=== PATIENT | female | born 1930 | race Caucasian/White ===

== ENCOUNTER 2016-12-02 08:03 | Inpatient (IN) | payer OTHER ==
[2016-12-02] MEDS ORDERED: NS 250 ML IV ONE (08:24)
[2016-12-02] MEDS ORDERED: ONDANSETRON 4 MG/2 ML VIAL IVP ONE (08:24)
--- NOTE | 2016-12-02 09:03 | CPEKG ---
Heart Rate: 87 RR Interval: 690 P-R Interval: 160 QRSD Interval: 106 QT Interval: 412 QTC Interval: 496 P [place]: 54 QRS [place]: 22 T Wave [place]: 148 EKG Severity - ABNORMAL ECG - EKG Impression: SINUS RHYTHM EKG Impression: NONSPECIFIC REPOL ABNORMALITY, LATERAL LEADS EKG Impression: BORDERLINE PROLONGED QT INTERVAL Electronically Signed By: Eugenio Carr 02-Dec-2016 15:00:12
[2016-12-02] MEDS ORDERED: IOPAMIDOL (ISOVUE-370) 150 ML BTL IV ONE (09:04)
--- NOTE | 2016-12-02 09:14 | EDPHY ---
H & P Time Seen by Provider: 12/02/16 08:23 HPI/ROS: HPI Nausea. On Macrobid. 78-year-old female by private vehicle. This patient has a recent diagnosis of urinary tract infection. She was started on Macrobid yesterday. She reports that she thinks the medication is making her nauseous. She was up last night with nausea but no vomiting. She denies any abdominal pain. She has not had any diarrhea. No bloody or melenic stool. Last meal was yesterday evening. Last bowel movement yesterday as well. She has not had any chest pain. No palpitations. She does state that she feels mildly more short of breath with exertion. ROS: Constitutional: No fever, no chills. No weakness. Eyes: No discharge. No changes in vision. ENT: No sore throat. No nasal congestion or rhinorrhea. Respiratory: No cough. As above. Cardiac: No chest pain, no palpitations. Gastrointestinal: No abdominal pain, no vomiting, no diarrhea. As above. Genitourinary: No hematuria. No dysuria or increased frequency with urination. Musculoskeletal: No back pain. No neck pain. No myalgias or arthralgias. Skin: No rashes. Neurological: No headache. No focal weakness or altered sensation. Past medical history: Aortic valve regurgitation. She is not on any antiplatelet or anticoagulant medications. Intermittent atrial fibrillation. Her operating room aide is Dr. Carlos Giraldo. Her primary care physician is Dr. Chan. Social history: She lives at [facility] by herself. Her daughter is at the bedside and lives nearby. Physical Exam: General Appearance: Alert, no distress. This patient is responding to questions appropriately and in full sentences. This patient appears well- hydrated and well-nourished. Eyes: Pupils equal and round no pallor or injection. No lid edema, erythema or injection. Respiratory: There are no retractions, lungs are clear to auscultation with good air movement bilaterally. Cardiovascular: Regular rate and rhythm. Holosystolic murmur. Gastrointestinal: Abdomen is soft and nontender, no masses, bowel sounds normal. No focal tenderness at McBurney's point. No Moran sign. Neurological: Motor sensory function is grossly intact. Cranial nerves are normal. Gait is normal. Skin: Warm and dry, no rashes. Musculoskeletal: Neck is supple and nontender. Right lower extremity is chronically swollen relative to the left secondary to a knee injury. Psychiatric: No agitation. No depression. Database: EKG: EKG time is 9:01 a.m.; EKG shows a narrow complex normal sinus rhythm with a ventricular rate of 87. Repolarization abnormality noted in the lateral leads. She has minimal J-point elevation in AVR, she has minimal ST depressions in V4 , V5 and V6 The AR, QRS, QT intervals are within normal limits. There are no ST-T wave changes indicative of ischemic or injury pattern. No evidence of right heart strain. This EKG was compared to a prior study from 05/08/2016 and does not show any significant changes. Interpreted by me. Imaging: Chest x-ray PA and lateral; the cardiac mediastinal silhouette is unremarkable except for mild cardiomegaly and some rotational effect. No evidence of infiltrate or pneumothorax. Chronic diffuse airway disease. No acute cardiopulmonary disease process noted. Interpreted by me. Right lower extremity Doppler ultrasound; negative for DVT. Results were discussed with staff radiologist. CT angiogram of chest; no pulmonary embolism. Mild CHF, pulmonary nodules noted. No other significant pathology. Results discussed with staff radiologist. Recommendation is repeat CT in several months to follow up on pulmonary nodules. Procedures: Emergency department course: IV placed. She was placed on a monitor. EKG performed. Chest x-ray obtained. She was given 4 mg of IV Zofran. Vital signs reviewed and are normal. She is afebrile. 10:40 a.m., patient currently in CT. 11:25 a.m., patient re-evaluated. Resting comfortably at this time. Results of diagnostic tests with the daughter and the patient. The urine appears clean. I do not feel there is indication for antibiotics at this time. The patient is afebrile. Her vital signs are otherwise normal. However, concerning is a low sodium of 121. She does have a history of hyponatremia. However on review of her recent laboratory work she has had sodiums in the 130s. They are in agreement with admission. 11:55 a.m., spoke with hospitalist, case discussed in detail. Patient accepted for admission to the hospitalist service under the care of Dr. Rivera. Differential Diagnosis: The differential diagnosis on this patient includes but is not limited to medication reaction, acute coronary syndrome, pulmonary embolism, atrial fibrillation. This represents a partial list of diagnoses considered. These considerations are based on history, physical exam, past history, reassessment and diagnostic testing. Smoking Status: Former smoker Constitutional: Initial Vital Signs Temperature (C) 36.3 C 12/02/16 08:10 Heart Rate 96 12/02/16 08:10 Respiratory Rate 18 12/02/16 08:10 Blood Pressure 129/78 H 12/02/16 08:10 O2 Sat (%) 93 12/02/16 08:10 O2 Delivery Mode Room Air Allergies/Adverse Reactions: Sulfa (Sulfonamide Antibiotics) Allergy (Verified 12/02/16 08:09) Home Medications: Medication Instructions Recorded ALPRAZolam [Xanax] 0.5 mg PO BID PRN 01/12/11 Aspirin [Aspirin 81mg] 81 mg PO DAILY 01/12/11 Atenolol [Atenolol 25 mg] 25 mg PO DAILY 01/18/11 Macrobid 12/02/16 Medical Decision Making - Data Points Laboratory Results: Laboratory Results 12/02/16 09:12 12/02/16 09:12 12/02/16 12/02/16 12/02/16 11:10 09:12 09:12 WBC RBC Hgb Hct MCV MCH MCHC RDW Plt Count MPV Neut % (Auto) Lymph % (Auto) Mcleod % (Auto) Eos % (Auto) Baso % (Auto) Nucleat RBC Rel Count Absolute Neuts (auto) Absolute Lymphs (auto) Absolute Monos (auto) Absolute Eos (auto) Absolute Basos (auto) Absolute Nucleated RBC Immature Gran % Immature Gran # PT 15.7 SEC H SEC (12.0-15.0) INR 1.25 H (0.83-1.16) APTT 28.5 SEC SEC (23.0-38.0) D-Dimer 0.54 ug/mLFEU H ug/mLFEU (0.00-0.50) Sodium 121 mEq/L L mEq/L (134-144) Potassium 4.4 mEq/L mEq/L (3.5-5.2) Chloride 88 mEq/L L mEq/L (97-110) Carbon Dioxide 22 mEq/l mEq/l (22-31) Anion Gap 11 mEq/L mEq/L (8-16) BUN 12 mg/dL mg/dL (7-23) Creatinine 0.4 mg/dL L mg/dL (0.6-1.0) Estimated GFR > 60 Glucose 130 mg/dL H mg/dL (70-100) Calcium 8.9 mg/dL mg/dL (8.5-10.4) Total Bilirubin 1.8 mg/dL H mg/dL (0.1-1.4) Conjugated Bilirubin 0.4 mg/dL mg/dL (0.0-0.5) Unconjugated Bilirubin 1.4 mg/dL H mg/dL (0.0-1.1) AST 52 IU/L H IU/L (14-46) ALT 70 IU/L H IU/L (9-52) Alkaline Phosphatase 51 IU/L IU/L (38-126) Troponin I NT-Pro-B Natriuret Pep 8230 pg/mL H pg/mL (0-450) Total Protein 6.6 g/dL g/dL (6.3-8.2) Albumin 4.1 g/dL g/dL (3.5-5.0) Lipase 76.0 IU/L IU/L (23-300) Urine Color YELLOW Urine Appearance CLEAR Urine pH 5.0 (5.0-7.5) Ur Specific [place] > 1.035 H (1.002-1.030) Urine Protein NEGATIVE (NEGATIVE) Urine Ketones 1+ H (NEGATIVE) Urine Blood NEGATIVE (NEGATIVE) Urine Nitrate NEGATIVE (NEGATIVE) Urine Bilirubin NEGATIVE (NEGATIVE) Urine Urobilinogen NEGATIVE EU EU (0.2-1.0) Ur Leukocyte Esterase NEGATIVE (NEGATIVE) Urine RBC NONE SEEN /hpf /hpf (0-3) Urine WBC 1-3 /hpf /hpf (0-3) Ur Epithelial Cells TRACE /lpf /lpf (NONE-1+) Urine Mucus TRACE /lpf /lpf (NONE-1+) Ur Culture Indicated? NOT INDICATED (NI) Urine Glucose NEGATIVE (NEGATIVE) 12/02/16 12/02/16 09:12 09:00 WBC 15.13 10^3/uL H 10^3/uL (3.80-9.50) RBC 3.68 10^6/uL L 10^6/uL (4.18-5.33) Hgb 11.7 g/dL L g/dL (12.6-16.3) Hct 32.8 % L % (38.0-47.0) MCV 89.1 fL fL (81.5-99.8) MCH 31.8 pg pg (27.9-34.1) MCHC 35.7 g/dL g/dL (32.4-36.7) RDW 12.6 % % (11.5-15.2) Plt Count 204 10^3/uL 10^3/uL (150-400) MPV 10.4 fL fL (8.7-11.7) Neut % (Auto) 91.3 % H % (39.3-74.2) Lymph % (Auto) 4.3 % L % (15.0-45.0) Mcleod % (Auto) 3.4 % L % (4.5-13.0) Eos % (Auto) 0.1 % L % (0.6-7.6) Baso % (Auto) 0.2 % L % (0.3-1.7) Nucleat RBC Rel Count 0.0 % % (0.0-0.2) Absolute Neuts (auto) 13.81 10^3/uL H 10^3/uL (1.70-6.50) Absolute Lymphs (auto) 0.65 10^3/uL L 10^3/uL (1.00-3.00) Absolute Monos (auto) 0.52 10^3/uL 10^3/uL (0.30-0.80) Absolute Eos (auto) 0.01 10^3/uL L 10^3/uL (0.03-0.40) Absolute Basos (auto) 0.03 10^3/uL 10^3/uL (0.02-0.10) Absolute Nucleated RBC 0.00 10^3/uL 10^3/uL (0-0.01) Immature Gran % 0.7 % % (0.0-1.1) Immature Gran # 0.11 10^3/uL H 10^3/uL (0.00-0.10) PT INR APTT D-Dimer Sodium Potassium Chloride Carbon Dioxide Anion Gap BUN Creatinine Estimated GFR Glucose Calcium Total Bilirubin Conjugated Bilirubin Unconjugated Bilirubin AST ALT Alkaline Phosphatase Troponin I < 0.012 ng/mL ng/mL (0-0.034) NT-Pro-B Natriuret Pep Total Protein Albumin Lipase Urine Color Urine Appearance Urine pH Ur Specific [place] Urine Protein Urine Ketones Urine Blood Urine Nitrate Urine Bilirubin Urine Urobilinogen Ur Leukocyte Esterase Urine RBC Urine WBC Ur Epithelial Cells Urine Mucus Ur Culture Indicated? Urine Glucose Medications Given: Discontinued Medications Sodium Chloride (Ns) 250 mls @ 0 mls/hr IV ONCE ONE PRN Reason: Wide Open Stop: 12/02/16 08:25 Last Admin: 12/02/16 09:20 Dose: 250 mls Ondansetron HCl (Zofran) 4 mg IVP EDNOW ONE Stop: 12/02/16 08:25 Last Admin: 12/02/16 09:20 Dose: 4 mg Departure - Departure Disposition: [facility] Inpatient Acute Clinical Impression: Nausea, Hyponatremia, CHF (congestive heart failure) Referrals: Racquel Chan MD [Primary Care Provider] - As per Instructions
[2016-12-02 09:25] LABS: % IMMATURE GRANULYOCYTES 0.7 % (0.0-1.1); ABSOLUTE IMMATURE GRANULOCYTES 0.11 10^3/uL (0.00-0.10); ADD DIFF? NO; ADD MORPH? NO; ADD SCAN? NO; ATYPICAL LYMPHOCYTE FLAG 0 (0-99); FRAGMENT RBC FLAG 0 (0-99); HEMATOCRIT 32.8 % (38.0-47.0); HEMOGLOBIN 11.7 g/dL (12.6-16.3); LEFT SHIFT FLG 0 (0-99); LIPEMIA HEMOLYSIS FLAG 90 (0-99); MEAN CELL HEMOGLOBIN 31.8 pg (27.9-34.1); MEAN CELL HEMOGLOBIN CONCENTR. 35.7 g/dL (32.4-36.7); MEAN CELL VOLUME 89.1 fL (81.5-99.8); MEAN PLATELET VOLUME 10.4 fL (8.7-11.7); PLATELET CLUMPS FLAG 0 (0-99); PLATELET COUNT 204 10^3/uL (150-400); RED BLOOD CELL COUNT 3.68 10^6/uL (4.18-5.33); RED CELL DISTRIBUTION WIDTH 12.6 % (11.5-15.2)
[2016-12-02 09:34] LABS: ALANINE AMINOTRANSFERASE 70 IU/L (9-52); ALBUMIN 4.1 g/dL (3.5-5.0); ALKALINE PHOSPHATASE 51 IU/L (38-126); ANION GAP 11 mEq/L (8-16); ASPARTATE AMINOTRANSFERASE 52 IU/L (14-46); BILIRUBIN,TOTAL 1.8 mg/dL (0.1-1.4); BILIRUBIN-CONJUGATED 0.4 mg/dL (0.0-0.5); BILIRUBIN-UNCONJUGATED 1.4 mg/dL (0.0-1.1); CALCIUM 8.9 mg/dL (8.5-10.4); CARBON DIOXIDE 22 mEq/l (22-31); CHLORIDE 88 mEq/L (97-110); CREATININE 0.4 mg/dL (0.6-1.0); GLOMERULAR FILTRATION RATE > 60; GLUCOSE 130 mg/dL (70-100); INR 1.25 (0.83-1.16); POTASSIUM 4.4 mEq/L (3.5-5.2); PROTIME(PATIENT) 15.7 SEC (12.0-15.0); SODIUM 121 mEq/L (134-144); TOTAL PROTEIN 6.6 g/dL (6.3-8.2)
[2016-12-02 09:35] LABS: APTT 28.5 SEC (23.0-38.0)
[2016-12-02 11:31] LABS: COLOR YELLOW; LEUKOCYTE ESTERASE,URINE NEGATIVE (NEGATIVE); NITRITE,URINE NEGATIVE (NEGATIVE)
[2016-12-02 11:38] LABS: MUCUS TRACE /lpf (NONE-1+)
[2016-12-02 11:43] LABS: RBC,URINE NONE SEEN /hpf (0-3)
[2016-12-02] MEDS ORDERED: ONDANSETRON 4 MG/2 ML VIAL IVP PRN (15:56)
[2016-12-02] MEDS ORDERED: ZOLPIDEM TARTRATE 5 MG TAB PO PRN (15:56)
[2016-12-02] MEDS ORDERED: ACETAMINOPHEN 325 MG TAB PO PRN (15:56)
[2016-12-02] MEDS ORDERED: ALPRAZolam 0.5 MG TAB PO PRN (16:02)
[2016-12-02] MEDS: FUROSEMIDE 40 MG/4 ML VIAL IVP SCH ×2 (16:34→21:23)
--- NOTE | 2016-12-02 16:41 | PDGENHP ---
History and Physical History and Physical: HISTORY AND PHYSICAL CC: Nausea HISTORY: This patient is acute scenario started 5 days ago when she started noticing urinary frequency. She was seen 2 days ago at primary care clinic where she was diagnosed with urinary tract infection and started on Macrobid. She denies having had any urinary burning, fevers, flank pain. She does give a history of having had urinary tract infections as often as monthly although more recently says she has been taking apple cider vinegar and has had much less trouble with this with her last episode of bladder symptoms being a few months ago. The patient comes into the emergency room today because of nausea which she felt was caused by the Macrobid. This nausea started last evening and she has not had any vomiting but not a lot of trouble eating. Initially she denies any kind of shortness of breath or leg swelling but as we talked further does admit that she is less active than she used to be due to exertional dyspnea which seems probably somewhat chronic as well as chronic swelling she says in her right leg only. She does have a history of mitral regurgitation but has never had congestive heart failure from this that she know of and has never been hospitalized for this. She follows with Dr. roosevelt jean for this but has not had seen him for quite some time ROS: A comprehensive 10 system review revealed no other significant findings PAST MEDICAL HISTORY: Mitral regurgitation Hypertension Anxiety disorder and panic attacks Polymyalgia rheumatica, previously treated with steroids Osteoarthritis Mild hyponatremia with sodiums in the 130s Hysterectomy with oophorectomy FAMILY MEDICAL HISTORY: Heart failure SOCIAL HISTORY: Lives alone, fairly active overall for her age No tobacco or alcohol quit smoking in 1975 MEDICATIONS: The patients list has been reconciled by our clinical pharmacist in the EMR. I have reviewed the list and ordered appropriate medicines. PHYSICAL EXAMINATION: Vital Signs: Stable without fever Scraper Tender: Sinus rhythm on my review Examination: General: alert, oriented, good mentation, relaxed Skin: warm, dry, good color, no rash HEENT: normal Neck: Jugular venous distention is present with estimated central venous pressure approximately 13-14 cm by examination Resps: relaxed Lungs: Minimal bibasilar rales otherwise very diminished breath sounds Heart: regular, with 4/6 holosystolic murmur across precordium murmur Abdomen: soft, nondistended, nontender, +BS, no mass Upper Extremities: normal Lower Extremities: Pitting edema from the upper ankles down to the distal feet bilaterally approximately symmetric pole of No Bleeding or bruising Neurologic: normal speech/language, normal direct marketing representative, no focal weakness IV site: looks normal LABORATORY DATA: Sodium 121 [place] [address] with predominance of neutrophils BNP T greater than a 1000 Mild elevation of liver transaminases with bilirubin slightly high at 2.8 Urinalysis today with no pyuria I was able to from her outpatient urine culture from 2 days ago and it is growing and Enterococcus; I was unable to find a urinalysis from that day RADIOLOGY STUDIES: CT scan of chest done in the ER, my personal review of the images and interpretation: Heart is significantly enlarged. There is some evidence of vascular plethora but not really pulmonary edema be on some minimal interstitial edema and dependent regions. There is a nodular density and the peripheral left mid lung is noncalcified and will need some follow-up or further evaluation at this time. Chest x-ray in the ER, my personal review of images and interpretation: The lungs are hyperexpanded there is evidence of enlarged heart and mild vascular plethora 12 lead EKG, my interpretation of the tracing: Sinus rhythm with no evidence of acute ischemia ASSESSMENT: -presenting nausea symptom is most likely a side effect of her Macrobid but could be due to her hypernatremia -hypervolemic hyponatremia, in the setting of a long history of much milder chronic hyponatremia -right-sided congestive heart failure acute on likely chronic -Known history of mitral regurgitation -Suspect COPD with smoking history and hyper expanded lungs on chest x-ray -left-sided lung nodule noncalcified will need further evaluation PLANS: -begin diuresis here now -oral fluid restriction at 1600 mL -follow sodium closely -echocardiogram and compare with her most recent from Cardiology Clinic -Pulmonary function testing -further treatment plans to be determined after results of all the above -she will need further assessment of left lung nodule I have reviewed the patient's case in detail with Dr. Carr I have reviewed the patient's past medical records as part of this assessment, including previous hospital visit records with physician notes and laboratory data as well as outpatient urine culture
[2016-12-02] MEDS: AMOXICILLIN/CLAVULANATE POT 875/125 MG TAB PO SCH (20:13)
[2016-12-02] MEDS: ATENOLOL 25 MG TAB PO SCH (20:13)
[2016-12-02] MEDS: ASPIRIN EC 81 MG TAB PO SCH (20:14)
[2016-12-02] MEDS: ALPRAZolam 0.25 MG TAB PO PRN (23:21)
[2016-12-03 04:36] LABS: ANION GAP 8 mEq/L (8-16); CALCIUM 8.4 mg/dL (8.5-10.4); CARBON DIOXIDE 27 mEq/l (22-31); CHLORIDE 90 mEq/L (97-110); CREATININE 0.5 mg/dL (0.6-1.0); GLOMERULAR FILTRATION RATE > 60; GLUCOSE 84 mg/dL (70-100); POTASSIUM 4.1 mEq/L (3.5-5.2); SODIUM 125 mEq/L (134-144)
[2016-12-03] MEDS: FUROSEMIDE 40 MG/4 ML VIAL IVP SCH ×2 (05:41→15:04)
[2016-12-03] MEDS: ENOXAPARIN 40 MG/0.4 ML SYR SC SCH (08:51)
[2016-12-03] MEDS: AMOXICILLIN/CLAVULANATE POT 875/125 MG TAB PO SCH ×2 (08:51→20:36)
[2016-12-03] MEDS: MULTIVITAMINS 1 EACH TAB PO SCH (08:51)
[2016-12-03] MEDS: PRESERVISION AREDS2 FORMULA EYE VIT 1 EACH PO SCH (08:51)
[2016-12-03] MEDS ORDERED: LUTEIN PO SCH (09:00)
[2016-12-03] MEDS ORDERED: MINERALS PO SCH (09:00)
[2016-12-03] MEDS ORDERED: [UNRECOGNIZED DRUG - OTHER] PO SCH (09:00)
[2016-12-03] MEDS ORDERED: VIT A C PO SCH (09:00)
--- NOTE | 2016-12-03 11:07 | ECHO ---
[id number] + + [address] : : [place] [address] : : [phone] + + Adult Echocardiographic Report + ---+ :Name: MILENA QUEEN JStudy Date: 12/03/2016 08:40 AM : : Hospital Admission Number: [id number] Location: 212: :: 1930 Gender: Female Height: 66 in : :Age: 86 yrs Race: WH Weight: 159 lb : :Reason For Study: Right side CHF, PHTN? : : BSA: 1.8 meters2 : :History: MR and COPD : + ---+ MMode/2D Measurements \T\ Calculations IVSd: 1.6 cm RVDd: 3.6 cm FS: 25.5 % MV Diam: 3.2 cm LVPWd: 1.6 cm LVIDd: 5.1 cm EDV(Teich): 122.3 ml LVIDs: 3.8 cm ESV(Teich): 61.2 ml EF(Teich): 50.0 % LVOT diam: 1.7 cm LVLd ap4: 6.9 cm SV(MOD-sp4): 45.0 ml LVOT area: 2.3 cm2 EDV(MOD-sp4): 96.0 ml LVLs ap4: 6.0 cm ESV(MOD-sp4): 51.0 ml EF(MOD-sp4): 46.9 % Normal Measurement Values: + + :LVIDd (3.5-5.7cm) IVSd (0.6-1.1cm) LVPWd (0.6-1.1cm) Aortic Root (2.0-3.7cm)Left Atrium (1.5-4.0cm): :LV Vol(d) (76-115ml) LV Vol(s) (29-48ml) Ejec Fraction (50-65%)PV Driss (0.6- 1.2m/s) TV Driss (0.4-1.0m/s) : :MV E Driss (0.8-1.0m/s)MV A Driss (0.3-1.0m/s)LVOT Driss (0.7-1.2m/s) Asc Ao Driss ( 0.9-1.8m/s) : + + Doppler Measurements \T\ Calculations MV E max driss: MV V2 max: MV P1/2t max driss: Ao mean P.4 cm/sec 125.5 cm/sec 126.0 cm/sec 83.1 mmHg MV A max driss: MV max PG: MV P1/2t: 66.8 msec Ao V2 mean: 71.1 cm/sec 6.3 mmHg MVA(P1/2t): 3.3 cm2 440.1 cm/sec MV E/A: 1.8 MV V2 mean: MV dec slope: Ao V2 VTI: MV dec time: 72.0 cm/sec 143.0 cm 0.16 sec MV mean P.5 cm/sec2 RANDA(I,D): 2.4 mmHg 0.26 cm2 MV V2 VTI: 29.2 cm MV area (1 diam): 8.0 cm2 MVA(VTI): 1.3 cm2 MV Flow area (1diam): 8.0 cm2 AI max driss: LV V1 mean PG: MR max driss: MR(RF 1 diam): 285.7 cm/sec 0.88 mmHg 681.0 cm/sec 3.0 % AI max PG: LV V1 mean: MR max P.6 mmHg 41.7 cm/sec 185.6 mmHg AI dec slope: LV V1 VTI: 15.9 cm 345.8 cm/sec2 AI P1/2t: 242.0 msec SV(MV 1 diam): PA V2 max: TR max driss: RF(MV,LVOT) 234.6 ml 127.6 cm/sec 346.1 cm/sec (1diam): 0.84 SI(MV 1 diam): PA max PG: TR max P.9 mmHg 6.5 mmHg RAP systole: 129.3 ml/m2 15.0 mmHg SV(LVOT): 36.6 ml RVSP(TR): 62.9 mmHg Left Ventricle The left ventricle is normal in size. There is moderate concentric left ventricular hypertrophy. Ejection Fraction = 50-55%. There is Doppler evidence for diastolic dysfunction. Regional wall motion abnormalities cannot be excluded due to limited visualization. Right Ventricle The right ventricle is normal in size and function. Atria The left atrium is severely dilated. The right atrium is mildly dilated. The interatrial septum is intact with no evidence for an atrial septal defect. Mitral Valve The mitral valve leaflets appear thickened, but open well. Calcified mitral apparatus. There is no mitral valve stenosis. There is moderate mitral regurgitation. Tricuspid Valve The tricuspid valve is normal in structure and function. There is no tricuspid stenosis. There is moderate tricuspid regurgitation. Right ventricular systolic pressure is 62.9mmHg. There is Doppler evidence for severe pulmonary hypertension. Aortic Valve Severe Aortic Valve Calcification. Severe valvular aortic stenosis. AV mean 82 mmHG, Max velocity 5.4 m/s. Mild aortic regurgitation. Pulmonic Valve The pulmonic valve is not well visualized. There is no pulmonic valvular stenosis. There is no pulmonic valvular regurgitation. Great Vessels The aortic root is not well visualized. Pericardium/Pleural trivial pericardial effusion. There is a fat pad seen. Conclusion A complete two-dimensional transthoracic echocardiogram was performed (2D, M-mode, Doppler and color flow Doppler). The study was technically difficult. The left ventricle is normal in size. There is moderate concentric left ventricular hypertrophy. Ejection Fraction = 50-55%. There is Doppler evidence for diastolic dysfunction. Regional wall motion abnormalities cannot be excluded due to limited visualization. The left atrium is severely dilated. The mitral valve leaflets appear thickened, but open well. Calcified mitral apparatus. There is moderate tricuspid regurgitation. Right ventricular systolic pressure is 62.9mmHg. There is Doppler evidence for severe pulmonary hypertension. Severe Aortic Valve Calcification Severe valvular aortic stenosis. Mild aortic regurgitation. AV mean 82 mmHG, Max velocity 5.4 m/s The aortic root is not well visualized. trivial pericardial effusion. There is moderate mitral regurgitation. Final Reading Physician: Shae Diaz signed on 12/03/2016 11:06 AM Ordering Physician: Binh Rivera Performed By: Leeanna Poole
[2016-12-03 14:28] LABS: ANION GAP 9 mEq/L (8-16); CALCIUM 8.6 mg/dL (8.5-10.4); CARBON DIOXIDE 27 mEq/l (22-31); CHLORIDE 89 mEq/L (97-110); CREATININE 0.5 mg/dL (0.6-1.0); GLOMERULAR FILTRATION RATE > 60; GLUCOSE 145 mg/dL (70-100); POTASSIUM 4.1 mEq/L (3.5-5.2); SODIUM 125 mEq/L (134-144)
--- NOTE | 2016-12-03 17:57 | HOSPPROG ---
Hospitalist Progress Note Assessment/Plan: DIAGNOSES: -RIGHT-SIDED CONGESTIVE HEART FAILURE ACUTE ON LIKELY CHRONIC; SEVERE PULMONARY HYPERTENSION FOUND ON ECHOCARDIOGRAM -so far good diuresis here and she is tolerating that at this point but still has significant peripheral edema -SEVERE VALVULAR AORTIC STENOSIS, NEWLY DIAGNOSED ON ECHOCARDIOGRAM NOW -MODERATE MITRAL REGURGITATION, CHRONIC -NAUSEA, RESOLVED, LIKELY DUE TO MACROBID -HYPERVOLEMIC HYPONATREMIA, IN THE SETTING OF A LONG HISTORY OF MUCH MILDER CHRONIC HYPONATREMIA -improving with diuresis here so far -SUSPECT COPD WITH SMOKING HISTORY AND HYPER EXPANDED LUNGS ON CHEST X-RAY -LEFT-SIDED LUNG NODULE NONCALCIFIED WILL NEED FURTHER EVALUATION -ENTEROCOCCAL CYSTITIS, RESOLVING NICELY WITH ANTIBIOTIC PLANS: -with severe aortic stenosis on echocardiogram will need to back off on diuresis , and will have Dr. Giraldo visit her; it will be important to try and determine whether pulmonary hypertension from COPD and mitral regurgitation is more her acute issue or the aortic stenosis. If the aortic stenosis is felt to be causing significant acute problems she could potentially be a candidate for TAVR procedure, however I suspect that with salt restriction and low dose of diuretic she may do very well. -will need to review pulmonary function testing and if this shows evidence of COPD she would benefit from additional therapies for that SUBJECTIVE: Feels notably better today overall She has tolerated her diuresis well with no lightheadedness or dizziness or chest discomfort OBJECTIVE Vitals reviewed: Stable without fever Boat Pilot, my review: Sinus rhythm Exam: alert oriented Jugular venous distention is still present but at a lower level than yesterday skin warm dry color ok resps not labored lungs clear BSs, rales noted yesterday resolved heart regular with loud systolic murmur high pitched at the apex and more coarse at the base abd soft nondistended nontender, bowel sounds present limbs warm, no edema iv site ok Laboratory data: Sodium is better but remains low 125, renal function good Echocardiogram showing severe calcific aortic stenosis with gradient 82, pulmonary pressures estimated at 62, moderate mitral regurgitation and good ejection fraction at 55% Objective: Vital Signs Temp Pulse Resp BP Pulse Ox 36.9 C 73 15 114/64 99 12/03/16 16:00 12/03/16 16:00 12/03/16 16:00 12/03/16 16:00 12/03/16 16:00 Laboratory Results 12/03/16 13:40 12/02/16 12/03/16 12/04/16 06:59 06:59 06:59 Intake Total 1120 360 Output Total 4160 1600 Balance -3040 -1240 PT 15.7 SEC (12.0-15.0) H 12/02/16 09:12 INR 1.25 (0.83-1.16) H 12/02/16 09:12 ICD10 Worksheet Patient Problems: Problems Problem Status Onset CHF (congestive heart failure) Acute Hyponatremia Acute Nausea Acute Urinary tract infection Acute
[2016-12-03] MEDS ORDERED: FUROSEMIDE 20 MG TAB PO ONE (18:02)
[2016-12-03] MEDS: ATENOLOL 25 MG TAB PO SCH (20:33)
[2016-12-03] MEDS: ASPIRIN EC 81 MG TAB PO SCH (20:36)
[2016-12-03] MEDS: ALPRAZolam 0.25 MG TAB PO PRN (20:37)
[2016-12-04] MEDS: AMOXICILLIN/CLAVULANATE POT 875/125 MG TAB PO SCH (10:01)
[2016-12-04] MEDS: PRESERVISION AREDS2 FORMULA EYE VIT 1 EACH PO SCH (10:01)
[2016-12-04] MEDS: ENOXAPARIN 40 MG/0.4 ML SYR SC SCH (10:02)
[2016-12-04] MEDS: MULTIVITAMINS 1 EACH TAB PO SCH (10:02)
[2016-12-04 11:27] VITALS: TEMP 98.6
[2016-12-04 13:24] LABS: ANION GAP 8 mEq/L (8-16); CALCIUM 8.9 mg/dL (8.5-10.4); CARBON DIOXIDE 28 mEq/l (22-31); CHLORIDE 91 mEq/L (97-110); CREATININE 0.5 mg/dL (0.6-1.0); GLOMERULAR FILTRATION RATE > 60; GLUCOSE 93 mg/dL (70-100); POTASSIUM 4.4 mEq/L (3.5-5.2); SODIUM 127 mEq/L (134-144)
[2016-12-04 15:06] VITALS: BP 116/57; PULSE 77; RESP 18; O2SAT 92
--- NOTE | 2016-12-04 15:52 | PDCARCONS ---
Cardiology Consult Reason for Consult: New onset congestive heart failure Chief Complaint: Antibiotics bothering her Requesting Physician: Miguel History of Present Illness: 86-year-old female admitted to the hospital which he thought was an antibiotic reaction. She did feel well after getting antibiotics for UTI. She had some peripheral swelling some mild shortness of breath. She denied chest pain syncope or near syncope. Prior to this event she had been doing well with excellent quality of life. She is doing everything she wants without limitations. Echocardiogram done for new onset heart failure shows severe aortic stenosis and I am asked to comment outpatient medications. Ambulatory Orders ALPRAZolam [Xanax 0.5 MG (*)] 0.25 mg PO DAILY PRN 12/02/16 Acetaminophen [Tylenol Arthritis] 650 mg PO BID 12/02/16 Aspirin EC [Aspirin EC 81 mg (*)] 81 mg PO HS 12/02/16 Atenolol [Tenormin 25 mg (*)] 25 mg PO HS 12/02/16 Herbals/Supplements -Info Only 1 ea PO DAILY 12/02/16 Multivitamins [Multivitamin (*)] 1 each PO DAILY 12/02/16 Nitrofurantoin Monohyd/M-Cryst [Macrobid 100 mg Capsule] 100 mg PO Q12 Vit A,C & E/Lutein/Minerals [Ocuvite with Lutein Tablet] 1 each PO DAILY 12/02 History Information - Allergies/Home Medication List Allergies/Adverse Reactions: Sulfa (Sulfonamide Antibiotics) Allergy (Verified 12/02/16 08:09) Home Medications: ALPRAZolam [Xanax 0.5 MG (*)] 0.25 mg PO DAILY PRN 12/02/16 [Last Taken 12/02/16 ] Acetaminophen [Tylenol Arthritis] 650 mg PO BID 12/02/16 [Last Taken 12/01/16] Aspirin EC [Aspirin EC 81 mg (*)] 81 mg PO HS 12/02/16 [Last Taken 12/01/16] Atenolol [Tenormin 25 mg (*)] 25 mg PO HS 12/02/16 [Last Taken 12/01/16] Herbals/Supplements -Info Only 1 ea PO DAILY 12/02/16 [Last Taken Unknown] Multivitamins [Multivitamin (*)] 1 each PO DAILY 12/02/16 [Last Taken Unknown] Nitrofurantoin Monohyd/M-Cryst [Macrobid 100 mg Capsule] 100 mg PO Q12 12/02/16 [Last Taken 12/01/16] Vit A,C & E/Lutein/Minerals [Ocuvite Tablet] 1 each PO DAILY 12/02/16 [Last Taken Unknown] I have personally reviewed and updated: family history, medical history, social history, surgical history - Past Medical History atrial fibrillation - Family History Positive for: CAD - Social History Smoking Status: Former smoker Physical Exam Temp Pulse Resp BP Pulse Ox 37.0 C 77 18 116/57 L 92 12/04/16 15:04 12/04/16 15:04 12/04/16 15:04 12/04/16 15:04 12/04/16 15:04 O2 (L/minute) 1 Constitutional: no apparent distress, appears nourished Eyes: PERRL, anicteric sclera Ears, Nose, Mouth, Throat: moist mucous membranes Cardiovascular: regular rate and rhythym, systolic murmur Peripheral Pulses: 1+: carotid (R), carotid (L), femoral (R), femoral (L) Respiratory: no respiratory distress, no rales or rhonchi Gastrointestinal: normoactive bowel sounds, soft, non-tender abdomen Skin: warm, other (Venous insufficiency) Musculoskeletal: other ( kyphoscoliosis) Neurologic: AAOx3 Lab and Imaging 12/02/16 09:12 12/04/16 12:55 WBC 15.13 10^3/uL (3.80-9.50) H 12/02/16 09:12 RBC 3.68 10^6/uL (4.18-5.33) L 12/02/16 09:12 Hgb 11.7 g/dL (12.6-16.3) L 12/02/16 09:12 Hct 32.8 % (38.0-47.0) L 12/02/16 09:12 MCV 89.1 fL (81.5-99.8) 12/02/16 09:12 MCH 31.8 pg (27.9-34.1) 12/02/16 09:12 MCHC 35.7 g/dL (32.4-36.7) 12/02/16 09:12 RDW 12.6 % (11.5-15.2) 12/02/16 09:12 Plt Count 204 10^3/uL (150-400) 12/02/16 09:12 MPV 10.4 fL (8.7-11.7) 12/02/16 09:12 Neut % (Auto) 91.3 % (39.3-74.2) H 12/02/16 09:12 Lymph % (Auto) 4.3 % (15.0-45.0) L 12/02/16 09:12 [place] % (Auto) 3.4 % (4.5-13.0) L 12/02/16 09:12 Eos % (Auto) 0.1 % (0.6-7.6) L 12/02/16 09:12 Baso % (Auto) 0.2 % (0.3-1.7) L 12/02/16 09:12 Nucleat RBC Rel Count 0.0 % (0.0-0.2) 12/02/16 09:12 Absolute Neuts (auto) 13.81 10^3/uL (1.70-6.50) H 12/02/16 09:12 Absolute Lymphs (auto) 0.65 10^3/uL (1.00-3.00) L 12/02/16 09:12 Absolute Monos (auto) 0.52 10^3/uL (0.30-0.80) 12/02/16 09:12 Absolute Eos (auto) 0.01 10^3/uL (0.03-0.40) L 12/02/16 09:12 Absolute Basos (auto) 0.03 10^3/uL (0.02-0.10) 12/02/16 09:12 Absolute Nucleated RBC 0.00 10^3/uL (0-0.01) 12/02/16 09:12 Immature Gran % 0.7 % (0.0-1.1) 12/02/16 09:12 Immature Gran # 0.11 10^3/uL (0.00-0.10) H 12/02/16 09:12 PT 15.7 SEC (12.0-15.0) H 12/02/16 09:12 INR 1.25 (0.83-1.16) H 12/02/16 09:12 APTT 28.5 SEC (23.0-38.0) 12/02/16 09:12 D-Dimer 0.54 ug/mLFEU (0.00-0.50) H 12/02/16 09:12 Sodium 127 mEq/L (134-144) L 12/04/16 12:55 Potassium 4.4 mEq/L (3.5-5.2) 12/04/16 12:55 Chloride 91 mEq/L (97-110) L 12/04/16 12:55 Carbon Dioxide 28 mEq/l (22-31) 12/04/16 12:55 Anion Gap 8 mEq/L (8-16) 12/04/16 12:55 BUN 16 mg/dL (7-23) 12/04/16 12:55 Creatinine 0.5 mg/dL (0.6-1.0) L 12/04/16 12:55 Estimated GFR > 60 12/04/16 12:55 Glucose 93 mg/dL (70-100) 12/04/16 12:55 Calcium 8.9 mg/dL (8.5-10.4) 12/04/16 12:55 Total Bilirubin 1.8 mg/dL (0.1-1.4) H 12/02/16 09:12 Conjugated Bilirubin 0.4 mg/dL (0.0-0.5) 12/02/16 09:12 Unconjugated Bilirubin 1.4 mg/dL (0.0-1.1) H 12/02/16 09:12 AST 52 IU/L (14-46) H 12/02/16 09:12 ALT 70 IU/L (9-52) H 12/02/16 09:12 Alkaline Phosphatase 51 IU/L (38-126) 12/02/16 09:12 Troponin I < 0.012 ng/mL (0-0.034) 12/02/16 09:00 NT-Pro-B Natriuret Pep 8230 pg/mL (0-450) H 12/02/16 09:12 Total Protein 6.6 g/dL (6.3-8.2) 12/02/16 09:12 Albumin 4.1 g/dL (3.5-5.0) 12/02/16 09:12 Lipase 76.0 IU/L (23-300) 12/02/16 09:12 Urine Color YELLOW 12/02/16 11:10 Urine Appearance CLEAR 12/02/16 11:10 Urine pH 5.0 (5.0-7.5) 12/02/16 11:10 Ur Specific [place] > 1.035 (1.002-1.030) H 12/02/16 11:10 Urine Protein NEGATIVE (NEGATIVE) 12/02/16 11:10 Urine Ketones 1+ (NEGATIVE) H 12/02/16 11:10 Urine Blood NEGATIVE (NEGATIVE) 12/02/16 11:10 Urine Nitrate NEGATIVE (NEGATIVE) 12/02/16 11:10 Urine Bilirubin NEGATIVE (NEGATIVE) 12/02/16 11:10 Urine Urobilinogen NEGATIVE EU (0.2-1.0) 12/02/16 11:10 Ur Leukocyte Esterase NEGATIVE (NEGATIVE) 12/02/16 11:10 Urine RBC NONE SEEN /hpf (0-3) 12/02/16 11:10 Urine WBC 1-3 /hpf (0-3) 12/02/16 11:10 Ur Epithelial Cells TRACE /lpf (NONE-1+) 12/02/16 11:10 Urine Mucus TRACE /lpf (NONE-1+) 12/02/16 11:10 Ur Culture Indicated? NOT INDICATED (NI) 12/02/16 11:10 Urine Glucose NEGATIVE (NEGATIVE) 12/02/16 11:10 Laboratory Tests 12/02/16 12/02/16 09:00 09:12 Troponin I < 0.012 NT-Pro-B Natriuret Pep 8230 H Interpretation: Mild bilateral alveolar infiltrates with cardiomegaly. Right- sided chamber seems to be more enlarged than the left. EKG additional interpertation: Sinus rhythm with nonspecific subtle ST-T changes. No evidence of acute coronary syndrome. Echocardiogram: Aortic peak valve gradient of over 100 mm of mercury associated with normal left ventricular systolic function. CT scan revealed calcific aortic and mitral valve disease with cardiomegaly and pulmonary edema. A/P Assessment: Impression: 86-year-old female with no other significant health issues presenting now with new onset congestive heart failure in the setting of severe aortic stenosis. Recommendations are for surgical evaluation. Considerations for transcutaneous aortic valve replacement if she is felt not to be a surgical candidate. discussed other options including empiric medical therapy with clinical follow-up. In the setting of heart failure this would suggest a relatively poor prognosis over the next 12 months. She stated she was ready. At the present time with her severe aortic stenosis she enjoys good quality of life. Clearly the urinary tract infection and her antibiotics pushed her into heart failure in the setting of . She may do well with conservative management. We will follow her up in the office a week to 10 days for further evaluation and consideration. Would need a CT scan of her lower extremities to determine access and potential risk of a transcutaneous aortic valve if we choose to go down that route. Questions were answered will follow her up as an outpatient. If she decides to have a transcutaneous aortic valve would need to consider coronary angiography. Past Medical History - Personal History Current Tetanus/Diphtheria Vaccine: Unsure Tetanus Vaccine Date: 2004 - Medical/Surgical History Hx Asthma: No Hx Chronic Respiratory Disease: No Hx Cardiac Disease: Yes Hx Diabetes: No Hx Renal Disease: No Hx Alcoholism: No Hx Cirrhosis: No Hx HIV/AIDS: No Hx Splenectomy or Spleen Trauma: No Other PMH: aortic valve regurg /afib - Social History Smoking Status: Former smoker
--- NOTE | 2016-12-04 17:42 | PDDCSUM ---
Discharge Summary Discharge Summary: DISCHARGE DIAGNOSES: -acute congestive heart failure, right and left-sided -severe calcific aortic stenosis with high gradient -moderate mitral regurgitation -severe pulmonary hypertension -suspected COPD based on smoking history and chest x-ray appearance; however bedside spirometry with suggestion of restriction -Simple cystitis, resolved after antibiotic -Nausea, resolved CONSULTANTS: Dr. Carlos Giraldo PROCEDURES: Echocardiography HOSPITAL COURSE SUMMARY: This patient presented initially to the hospital because of nausea which she thought was from antibiotic she was taking for symptoms of simple cystitis. However it was noted that she was having exertional dyspnea had ankle swelling and very elevated BNP with signs of congestive heart failure on chest x-ray. She has history of mitral regurgitation and a systolic murmur was heard. However the systolic murmur was not typical of lone mitral regurgitation. She had no chest pain or angina, did not have elevated troponin or ischemic EKG changes, and did not have any sign or symptoms of arrhythmia. In addition the patient was a past smoker and on chest x-ray there was evidence of some hyperexpansion of lungs. Patient was admitted to the hospital and given Lasix diuresis which was effective with 4 L out over the 1st night and she tolerated this well. However at that time echocardiogram was done which showed severe aortic stenosis in addition to her mitral regurgitation which is currently moderate. Her ejection fraction was in good condition. Pulmonary hypertension was noted on the echocardiogram. Bedside spirometry was done here and showed evidence of a significant restrictive pattern. I reviewed the case with Dr. Carlos Giraldo who knows her and he did consult at the bedside with her. His recommendation would be for either surgical or trans arterial approach to doing with her aortic stenosis if she is willing to do this. Our plan at this time is to back off on diuresis unless she is gaining weight or having significant edema accumulation. She will see Dr. Giraldo in 7-10 days in the clinic and will review options further. If she does decide to proceed with surgical approach, it would be useful to have formal pulmonary function testing and pulmonology Clinic before hand. At this time she is stable for discharge to home. MEDICATION CHANGES: 20 mg Lasix tablets were given with instructions to take these for 1-2 days if she has significant increase in swelling or gains more than 3 lb on daily pre breakfast weights. She is to contact if she has continued weight gain or swelling or other problems. FOLLOW-UP PLAN: Dr. Carlos Giraldo in 7-10 days Greater than 35 minutes bedside and care coordination time today
[2016-12-04] MEDS ORDERED: FUROSEMIDE 20 MG TAB ONE (19:19)
== END 2016-12-04 20:03 | disposition home or self-care (01) | DRG 292 ==
LOC: INTOOBSV 11:57 → F2W 14:20 → OBSVTOIN 12-03 22:10
PROVIDERS: ADMIT Internal Medicine; ATTEND Internal Medicine
DX: I50.23 Acute on chronic systolic (congestive) heart failure (principal); I35.0 Nonrheumatic aortic (valve) stenosis; I34.0 Nonrheumatic mitral (valve) insufficiency; E87.1 Hypo-osmolality and hyponatremia; N30.90 Cystitis, unspecified without hematuria; B95.2 Enterococcus as the cause of diseases classified elsewhere; R11.0 Nausea; T37.8X5A Adverse effect of other specified systemic anti-infectives and antiparasitics, initial encounter; I27.2 Other secondary pulmonary hypertension; E11.9 Type 2 diabetes mellitus without complications; J44.9 Chronic obstructive pulmonary disease, unspecified; Z87.891 Personal history of nicotine dependence; I48.91 Unspecified atrial fibrillation; M35.3 Polymyalgia rheumatica; R91.1 Solitary pulmonary nodule
CPT/HCPCS: 96374; 97116-GP; 97161-GP; G0378; G8978-GP-CI; G8978-GP-CJ; G8979-GP-CI; G8980-GP-CI; J1650; J2405; Q9967

== ENCOUNTER → 2016-12-09 | Outpatient (CLI) | payer OTHER | LOC: BHFA 16:00 | PROVIDERS: ATTEND Thoracic Surgery (Cardiothoracic Vascular Surgery) | DX: Z01.810 Encounter for preprocedural cardiovascular examination (principal) ==

== ENCOUNTER 2016-12-28 09:34 | Day surgery (SDC) | payer OTHER ==
[2016-12-28] MEDS ORDERED: diphenhydrAMINE 25 MG CAP PO ONE (09:38)
[2016-12-28] MEDS ORDERED: DIAZEPAM 5 MG TAB PO ONE (09:38)
[2016-12-28] MEDS ORDERED: NS 1,000 ML IV ONE (09:38)
[2016-12-28] MEDS ORDERED: ASPIRIN EC 325 MG TAB PO ONE (09:38)
[2016-12-28] MEDS ORDERED: FAMOTIDINE 20 MG TAB PO ONE (09:38)
--- NOTE | 2016-12-28 10:08 | CPEKG ---
Heart Rate: 68 RR Interval: 882 P-R Interval: 152 QRSD Interval: 104 QT Interval: 440 QTC Interval: 469 P [place]: 43 QRS [place]: 24 T Wave [place]: 220 EKG Severity - ABNORMAL ECG - EKG Impression: SINUS RHYTHM EKG Impression: VENTRICULAR PREMATURE COMPLEX EKG Impression: PROBABLE LVH WITH SECONDARY REPOL ABNRM EKG Impression: No significant change from December 02, 2016 except for PVC. Electronically Signed By: Luis A Delgado 28-Dec-2016 12:14:15
[2016-12-28 10:37] LABS: % IMMATURE GRANULYOCYTES 0.3 % (0.0-1.1); ABSOLUTE IMMATURE GRANULOCYTES 0.02 10^3/uL (0.00-0.10); ADD DIFF? NO; ADD MORPH? NO; ADD SCAN? NO; ATYPICAL LYMPHOCYTE FLAG 0 (0-99); FRAGMENT RBC FLAG 0 (0-99); HEMATOCRIT 38.3 % (38.0-47.0); HEMOGLOBIN 13.1 g/dL (12.6-16.3); LEFT SHIFT FLG 0 (0-99); LIPEMIA HEMOLYSIS FLAG 90 (0-99); MEAN CELL HEMOGLOBIN CONCENTR. 34.2 g/dL (32.4-36.7); MEAN CELL VOLUME 93.4 fL (81.5-99.8); PLATELET CLUMPS FLAG 0 (0-99); PLATELET COUNT 192 10^3/uL (150-400); RED CELL DISTRIBUTION WIDTH 12.4 % (11.5-15.2)
[2016-12-28 10:38] LABS: ANION GAP 8 mEq/L (8-16); CALCIUM 9.3 mg/dL (8.5-10.4); CARBON DIOXIDE 28 mEq/l (22-31); CHLORIDE 99 mEq/L (97-110); CHOLESTEROL 222 mg/dL (140-220); CHOLESTEROL/HDL RATIO 3.04 RATIO (1.00-4.44); CREATININE 0.5 mg/dL (0.6-1.0); GLOMERULAR FILTRATION RATE > 60; GLUCOSE 102 mg/dL (70-100); HIGH DENSITY LIPOPROTEIN 73 mg/dL (40-85); LDL/HDL RATIO 1.82 RATIO (1.00-3.22); LOW DENSITY LIPOPROTEIN 133 mg/dL (80-100); NON-HIGH DENSITY LIPOPROTEIN 149 mg/dL (90-129); POTASSIUM 4.4 mEq/L (3.5-5.2); SODIUM 135 mEq/L (134-144); TRIGLYCERIDE 83 mg/dL (35-135); VERY LOW DENSITY LIPOPROTEINS 16 mg/dL (8-25)
[2016-12-28 10:39] LABS: INR 1.11 (0.83-1.16); PROTIME(PATIENT) 14.2 SEC (12.0-15.0)
[2016-12-28] MEDS ORDERED: LIDOCAINE 1% 30 ML SDV ONE (12:33)
[2016-12-28] MEDS ORDERED: HEPARIN 10,000 UNIT/10 ML MDV ONE (12:34)
[2016-12-28] MEDS ORDERED: fentaNYL 100 MCG/2 ML INJ ONE (12:34)
[2016-12-28] MEDS ORDERED: MIDAZOLAM 2 MG/2 ML VIAL ONE (12:34)
[2016-12-28] MEDS ORDERED: VERAPAMIL 5 MG/2 ML VIAL ONE (12:34)
[2016-12-28] MEDS ORDERED: IOPAMIDOL (ISOVUE 370) 100 ML BTL IV ONE (12:35)
[2016-12-28] MEDS ORDERED: NITROGLYCERIN 0.4 MG BTL SL PRN (14:06)
[2016-12-28] MEDS ORDERED: ATROPINE SULFATE 1 MG/10 ML SYR IVP PRN (14:06)
[2016-12-28] MEDS ORDERED: ONDANSETRON 4 MG/2 ML VIAL IVP PRN (14:06)
[2016-12-28] MEDS ORDERED: OXYCODONE/APAP 5/325 TAB PO PRN (14:06)
[2016-12-28] MEDS ORDERED: HYDROCODONE/APAP 5/325 TAB PO PRN (14:06)
--- NOTE | 2016-12-28 14:10 | PDDXCAT ---
Diagnostic Cath Note - . Date: 12/28/16 Wheat Buyer: Enzo Indication: other (Severe aortic stenosis) - Procedure Access: right wrist Procedure: left heart catheterization, coronary angiography, right heart catheterization - Materials Left Heart Cath size: 5F Left Heart Cath materials: other (SiteSeer) Right Heart Cath size: 5F Right Heart Cath materials: PWP catheter - Findings-Left Heart Catheterization LM: Unobstructed LCX: Unobstructed RCA: aorta-ostial 80% - Findings-Right Heart Catheterization RA: 10 mmhg RV: 50mmHg/15mmhg PA: 50/20 mmHg PAOP: 15 mmHg Complications: None Estimated blood loss: <50ml Closure method: TR Band Assessment: Severe aortic stenosis. Aorto-ostial RCA stenosis of 80%. Mild pulmonary hypertension Plan: AVR, single vessel cabg Patient Problems: Problems Problem Status Onset Urinary tract infection Acute Nausea Acute Hyponatremia Acute CHF (congestive heart failure) Acute
== END 2016-12-28 18:08 | disposition home or self-care (01) ==
LOC: FCATH 09:34
PROVIDERS: ATTEND Internal Medicine Cardiovascular Disease
DX: I35.0 Nonrheumatic aortic (valve) stenosis (principal); I25.119 Atherosclerotic heart disease of native coronary artery with unspecified angina pectoris; I27.2 Other secondary pulmonary hypertension; I48.0 Paroxysmal atrial fibrillation; I50.32 Chronic diastolic (congestive) heart failure; Z88.2 Allergy status to sulfonamides
CPT/HCPCS: 93005; 93456; C1769; J1644; J2250; J3010; Q9967

== ENCOUNTER → 2017-01-18 | Outpatient (CLI) | payer OTHER | LOC: BHFA 10:45 | PROVIDERS: ATTEND Internal Medicine Cardiovascular Disease | DX: I48.91 Unspecified atrial fibrillation (principal); I35.0 Nonrheumatic aortic (valve) stenosis; I25.10 Atherosclerotic heart disease of native coronary artery without angina pectoris; I50.32 Chronic diastolic (congestive) heart failure ==

== ENCOUNTER 2017-02-03 07:15 | Inpatient (IN) | payer OTHER ==
[2017-02-03] MEDS ORDERED: AMINOCAPROIC ACID 5 GM/20 ML VIAL IV ONE (08:09)
[2017-02-03] MEDS ORDERED: MUPIROCIN 2% 22 GM OINT NS ONE (08:09)
[2017-02-03] MEDS ORDERED: INSULIN REGULAR HUMAN 100 UNIT in NS 100 ML IV ONE (08:09)
[2017-02-03] MEDS ORDERED: MANNITOL 25% 12.5 GM/50 ML VIAL IV ONE (08:09)
[2017-02-03] MEDS ORDERED: CITRATE DEXTROSE SOLN 500 ML BAG MISC ONE (08:09)
[2017-02-03] MEDS ORDERED: NOREPINEPHRINE BITARTRATE 16 MG in NS 250 ML IV ONE (08:09)
[2017-02-03] MEDS ORDERED: PHENYLEPHRINE HCL 50 MG in NS 250 ML IV ONE (08:09)
[2017-02-03] MEDS ORDERED: SODIUM BICARBONATE 20 MEQ, LIDOCAINE 1% 10 ML in NORMOSOL-R 1,000 ML MISC ONE (08:09)
[2017-02-03] MEDS ORDERED: ceFAZolin 2 GM/DEXTROSE 100 ML IV ONE (08:09)
[2017-02-03] MEDS ORDERED: LIDOCAINE 1% 5 ML SDV ID PRN (08:09)
[2017-02-03] MEDS ORDERED: NS 1,000 ML IV ONE (08:09)
--- NOTE | 2017-02-03 08:09 | PDGENHP ---
History and Physical - Chief Complaint Critical aortic stenosis/Heart failure - History of Present Illness 86F with known critical and heart failure here today for elective AVR. Since last seen, pt states her state of health has been well. She denies syncope, light-headedness, chest pain/palpitations, SOB, cough, abdominal pain, dysuria, LE edema. History Information - Allergies/Home Medication List Allergies/Adverse Reactions: Sulfa (Sulfonamide Antibiotics) Allergy (Verified 12/02/16 08:09) Home Medications: ALPRAZolam [Xanax 0.5 MG (*)] 0.25 mg PO DAILY PRN 12/02/16 [Last Taken 12/02/16 ] Aspirin EC [Aspirin EC 81 mg (*)] 81 mg PO HS 12/02/16 [Last Taken 12/27/16] Atenolol [Tenormin 25 mg (*)] 25 mg PO HS 12/02/16 [Last Taken 12/27/16] Herbals/Supplements -Info Only 1 ea PO DAILY 12/02/16 [Last Taken Unknown] Multivitamins [Multivitamin (*)] 1 each PO DAILY 12/02/16 [Last Taken 12/27/16] Vits A,C,E/Lutein/Minerals [Ocuvite with Lutein Tablet] 1 each PO DAILY [Last Taken 12/27/16] ALPRAZolam [Xanax 0.5 MG (*)] 0.5 mg PO HS 12/28/16 [Last Taken Unknown] I have personally reviewed and updated: medical history, social history, surgical history - Past Medical History atrial fibrillation, CHF, hypertension, recurrent UTI Additional medical history: critical aortic stenosis - Surgical History Reports: hysterectomy - Family History Positive for: CAD - Social History Smoking Status: Former smoker Alcohol Use: None Drug Use: None Review of Systems Constitutional: Reports: no symptoms EENMT: Reports: no symptoms Cardiac: Reports: no symptoms Respiratory: Reports: no symptoms Gastrointestinal: Reports: no symptoms Genitourinary: Reports: no symptoms Muscolosketal: Reports: no symptoms Neurological: Reports: no symptoms Physical Exam Constitutional: no apparent distress, appears nourished, not in pain Eyes: anicteric sclera Ears, Nose, Mouth, Throat: moist mucous membranes, hearing normal Cardiovascular: regular rate and rhythym Respiratory: no respiratory distress Gastrointestinal: soft, non-tender abdomen Skin: warm, normal color Neurologic: AAOx3, sensation intact bilaterally Psychiatric: interacting appropriately, not anxious, not encephalopathic, thought process linear Lab Data & Imaging Review Visualized and Interpreted Chest x-ray results: Yes Chest X-Ray results: no infiltrate, normal heart size Visualized and Interpreted imaging results: Yes Interpretation: No significant carotid stenosis Visualized and Interpreted EKG results: No Assessment & Plan Assessment: Critical Plan: AVR today
[2017-02-03] MEDS ORDERED: niCARdipine/NACL 200 ML IV SCH (08:30)
[2017-02-03] MEDS ORDERED: ALBUMIN 5% 250 ML BOTTLE IV ONE (08:41)
[2017-02-03] MEDS ORDERED: PROTAMINE SULFATE 50 MG/5 ML VIAL IVP ONE (08:41)
[2017-02-03] MEDS ORDERED: MILRINONE/DEXTROSE/100 ML BAG IV ONE (08:42)
[2017-02-03] MEDS ORDERED: methylPREDNISolone SOD SUCC 1 GM/8 ML VIAL ONE (08:42)
[2017-02-03] MEDS ORDERED: AMIODARONE HCL 150 MG/3 ML VIAL ONE (08:42)
[2017-02-03] MEDS ORDERED: DOPamine/DEXTROSE/250 ML BAG IV ONE (08:42)
[2017-02-03] MEDS ORDERED: CALCIUM CHLORIDE 1 GM/10 ML INJ ONE (08:42)
[2017-02-03] MEDS ORDERED: LIDOCAINE 2% 100 MG/5 ML SYR ONE (08:42)
[2017-02-03] MEDS ORDERED: AMINOCAPROIC ACID 5 GM/20 ML VIAL ONE (08:42)
[2017-02-03] MEDS ORDERED: POTASSIUM Cl (KCl) 20 MEQ/50 ML BAG IV ONE (08:42)
[2017-02-03] MEDS ORDERED: NA BICARBONATE 50 MEQ/50 ML VIAL ONE (08:42)
[2017-02-03] MEDS ORDERED: niCARdipine/NACL/200 ML BAG IV ONE (08:42)
[2017-02-03] MEDS ORDERED: MAGNESIUM SULFATE 1 GM/2 ML VIAL ONE (08:42)
[2017-02-03] MEDS ORDERED: ADENOSINE 6 MG/2 ML VIAL ONE (08:42)
[2017-02-03] MEDS ORDERED: CITRATE DEXTROSE SOLN 500 ML BAG ONE (08:42)
[2017-02-03] MEDS ORDERED: HEPARIN 10,000 UNIT/10 ML MDV ONE (08:43)
[2017-02-03] MEDS ORDERED: ceFAZolin 1 GM VIAL ONE (08:43)
[2017-02-03 10:45] LABS: HEMOGLOBIN A1C 5.1 % (4.0-6.0)
[2017-02-03] MEDS ORDERED: fentaNYL 250 MCG/5 ML INJ ONE ×2 (10:57)
[2017-02-03] MEDS ORDERED: PROPOFOL 200 MG/20 ML VIAL ONE ×2 (10:58→14:24)
[2017-02-03] MEDS ORDERED: MIDAZOLAM 2 MG/2 ML VIAL ONE (11:01)
[2017-02-03] MEDS ORDERED: VERAPAMIL 5 MG, NITROGLYCERIN 2.5 MG, HEPARIN 500 UNIT, SODIUM BICARBONATE 0.2 MEQ in L... MISC ONE (11:45)
[2017-02-03] MEDS ORDERED: MINERAL OIL 10 ML VIAL TP ONE (13:30)
[2017-02-03] MEDS ORDERED: fentaNYL 100 MCG/2 ML INJ IVP PRN (14:36)
[2017-02-03] MEDS ORDERED: ONDANSETRON DISINTEGRATING 4 MG TAB PO PRN (14:36)
[2017-02-03] MEDS ORDERED: ACETAMINOPHEN 325 MG TAB PO PRN (14:36)
[2017-02-03] MEDS ORDERED: MAGNESIUM HYDROXIDE 30 ML UDCUP PO PRN (14:36)
[2017-02-03] MEDS ORDERED: BISACODYL 10 MG SUPP PR PRN (14:36)
[2017-02-03] MEDS ORDERED: PANTOPRAZOLE SODIUM 40 MG in NS 100 ML IV ONE (14:36)
[2017-02-03] MEDS ORDERED: SODIUM CL NASAL 45 ML BTL EACHNARE PRN (14:36)
[2017-02-03] MEDS ORDERED: CEPACOL LOZENGE PO PRN (14:36)
[2017-02-03] MEDS ORDERED: LACTULOSE 20 GM/30 ML UDCUP PO PRN (14:36)
[2017-02-03] MEDS ORDERED: HYDROCODONE/APAP 5/325 TAB PO PRN (14:36)
[2017-02-03] MEDS ORDERED: POLYETHYLENE GLYCOL 3350 17 GM PKT PO PRN (14:36)
[2017-02-03] MEDS ORDERED: D50W 25 GM/50 ML SYR IVP PRN (14:36)
[2017-02-03] MEDS ORDERED: ONDANSETRON 4 MG/2 ML VIAL IVP PRN (14:36)
[2017-02-03] MEDS ORDERED: MAGNESIUM SULF 2 GM/WATER 50 ML IV ONE (14:36)
[2017-02-03] MEDS ORDERED: ACETAMINOPHEN 650 MG SUPP PR PRN (14:36)
[2017-02-03] MEDS ORDERED: MEPERIDINE 25 MG/ML SYR IVP PRN (14:36)
[2017-02-03] MEDS ORDERED: METOCLOPRAMIDE 10 MG/2 ML VIAL IVP PRN (14:36)
[2017-02-03] MEDS ORDERED: NS 1,000 ML IV SCH (14:45)
[2017-02-03] MEDS ORDERED: INSULIN REGULAR HUMAN 100 UNIT in NS 100 ML IV SCH (15:00)
[2017-02-03] MEDS ORDERED: ALBUMIN 5% 500 ML BOTTLE IV ONE ×2 (15:12→16:39)
--- NOTE | 2017-02-03 15:15 | POSTOPPROG ---
Post Op Note Date of Operation: 02/03/17 Surgeon: Dhruv Monahan Copier Technician: Brett Anesthesiologist: Beny Anesthesia: GET(General Endotracheal) Pre-op Diagnosis: , ASHD Procedure: AVR #23 Magna, SVG-RCA, EVH, Atriclip-TAISHA Inf/Abcess present in the surg proc area at time of surgery?: No EBL: 50-100 Drains: Other (2 blakes)
--- NOTE | 2017-02-03 16:19 | GOP ---
[f rep st] OPERATIVE REPORT DATE OF OPERATION: 02/03/2017 SURGEON: Dhruv Monahan DO PREOPERATIVE DIAGNOSIS: Critical aortic stenosis and arteriosclerotic heart disease. POSTOPERATIVE DIAGNOSIS: Critical aortic stenosis and arteriosclerotic heart disease with evidence of at least moderate mitral insufficiency. PROCEDURE PERFORMED: The patient was consented for aortic valve replacement and single-vessel bypas s and management of the left atrial appendage. FINDINGS: DESCRIPTION OF PROCEDURE: She was brought to the operating room, intubated, monitoring lines were p laced. She was prepped and draped in sterile classical manner. Sternotomy was performed. Intraope rative transesophageal echo revealed severe critical aortic stenosis with very high gradients and at least moderate mitral insufficiency. Dr. Giraldo evaluated the echo with us and despite the keyanna l regurg felt that she would tolerate it with normal LV function, and we should just proceed with ao rtic valve replacement with single-vessel bypass. She was heparinized, cannulated, bypass was begun and cardioplegic arrest was obtained with antegrade cardioplegia, retrograde cardioplegia and topic al hypothermia. Simultaneously, the vein was harvested from the right thigh, which was excellent quality, 3.7 mm vei n graft. We then grafted the right coronary artery just proximal to the PDA where it was a 3 mm ves viridiana without difficulty. We then used that graft to administer cardioplegia during the case. We the n performed an aortotomy and excised the heavily calcified trileaflet valve and debrided the anulus. The LV chamber was copiously irrigated. CO2 was infused. We then placed a 23 mm Magna valve in a supra-annular position with interrupted 2-0 Tycron pledgeted mattress sutures. The aortotomy was c losed in a two-layer fashion. We then placed a 45 mm AtriClip across the base of the left atrial ap pendage which was free of thrombus. The cross-clamp was then removed with suction on the ascending aortic vent in Trendelenburg. When no further air was identified, the patient was easily weaned fro m bypass. The heparin was reversed with protamine. The cannula was removed and oversewn. 2 ventri cular pacing wires, 2 mediastinal drains were placed. The thymic fat and pericardium were closed. Chest was closed in standard fashion. Postoperative CHRISTIAN revealed no aortic insufficiency with excel lent valvular function and persistent moderate mitral regurgitation. She was returned to ICU in sta ble condition. /[id number]/MODL
[2017-02-03] MEDS: ALBUMIN 5% 250 ML IV PRN (16:35)
[2017-02-03] MEDS ORDERED: ALBUMIN 5% 500 ML IV ONE (17:00)
[2017-02-03] MEDS ORDERED: EPINEPHrine 1 MG/10 ML SYR IVP ONE ×2 (17:08→17:16)
[2017-02-03] MEDS ORDERED: KETOROLAC 15 MG/1 ML SDV IVP ONE (17:20)
[2017-02-03] MEDS ORDERED: NOREPINEPHRINE BITARTRATE 16 MG in NS 250 ML IV SCH (17:30)
[2017-02-03 17:47] LABS: HEMATOCRIT 23.6 % (38.0-47.0)
[2017-02-03 19:38] LABS: CALCULATED OXYGEN SATURATION 98 % (92-95)
[2017-02-03 19:38] LABS: CALCULATED OXYGEN SATURATION 100 % (92-95); O2 CONCENTRATIION 1 % (0-100)
[2017-02-03] MEDS: SENNOSIDES/DOCUSATE SODIUM TAB PO SCH (20:11)
[2017-02-03] MEDS: MUPIROCIN 2% 22 GM OINT NS SCH (20:11)
[2017-02-03] MEDS: ceFAZolin 2 GM/DEXTROSE 100 ML IV SCH (21:34)
[2017-02-03] MEDS: POTASSIUM Cl (KCl) 50 ML IV PRN (22:06)
[2017-02-04] MEDS: POTASSIUM Cl (KCl) 50 ML IV PRN (02:07)
[2017-02-04] MEDS: ALBUMIN 5% 250 ML IV PRN (02:07)
[2017-02-04 04:23] LABS: % IMMATURE GRANULYOCYTES 0.5 % (0.0-1.1); ABSOLUTE IMMATURE GRANULOCYTES 0.07 10^3/uL (0.00-0.10); ADD DIFF? NO; ADD MORPH? NO; ADD SCAN? NO; ATYPICAL LYMPHOCYTE FLAG 0 (0-99); FRAGMENT RBC FLAG 0 (0-99); HEMATOCRIT 28.8 % (38.0-47.0); HEMOGLOBIN 9.9 g/dL (12.6-16.3); LEFT SHIFT FLG 10 (0-99); LIPEMIA HEMOLYSIS FLAG 90 (0-99); MEAN CELL HEMOGLOBIN 31.9 pg (27.9-34.1); MEAN CELL HEMOGLOBIN CONCENTR. 34.4 g/dL (32.4-36.7); MEAN CELL VOLUME 92.9 fL (81.5-99.8); MEAN PLATELET VOLUME 11.4 fL (8.7-11.7); PLATELET CLUMPS FLAG 10 (0-99); PLATELET COUNT 108 10^3/uL (150-400); RED CELL DISTRIBUTION WIDTH 13.8 % (11.5-15.2)
[2017-02-04 04:55] LABS: ANION GAP 12 mEq/L (8-16); CALCIUM 8.1 mg/dL (8.5-10.4); CARBON DIOXIDE 20 mEq/l (22-31); CHLORIDE 108 mEq/L (97-110); CREATININE 0.4 mg/dL (0.6-1.0); GLOMERULAR FILTRATION RATE > 60; GLUCOSE 139 mg/dL (70-100); POTASSIUM 4.9 mEq/L (3.5-5.2); SODIUM 140 mEq/L (134-144)
[2017-02-04] MEDS: ceFAZolin 2 GM/DEXTROSE 100 ML IV SCH ×3 (05:44→21:45)
[2017-02-04] MEDS: HEPARIN 5,000 UNIT/0.5 ML SYR SC SCH ×2 (05:44→15:08)
--- NOTE | 2017-02-04 07:13 | SOAPPROG ---
SOAP Progress Note Assessment/Plan: Assessment: POD#1 AVR #23 Simpson Magna bovine pericardial bioprosthesis, CABGx1 (SV-RCA), prophylactic AtriClip ligation TAISHA, EVH rt thigh. Sx severe - s/p tissue AVR. Antithrombotic prophylaxis with ASA if rhythm remains stable. 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 Secondary prevention with ASA, BB as allowed by BP, and statin when eating well. Chronic dCHF - Postop hemodynamics supported with colloid and low dose levo. Slow levo wean in progress. Diuretic and BB when appropriate. Acute expected blood loss anemia - Stable s/p 2u PRBC. No evidence active bleeding. Follow. Hx PAF - Holding SR thus far. BB as allowed by BP. High threshold for anticoagulation as TAISHA ligated and mechanical fall risk (walks with a cane). Mild-moderate MR - Not severe enough to warrant intervention. Possibly ischemic in which case may improve with revasc. Surveillance per cards. Plan: Routine POD#1 orders re drains, wires, and mobility. Oral intake clearance per BENDER MACHINE OPERATOR. Wean levo to MAP > 65. Colloid prn CVP < 10. Keep kamron and kuo until off levo. Possible tx to SDU this afternoon. 02/04/17 07:09 Subjective: Feels well. A little stiff but enjoying being OOB. No nausea or dizziness. Minimal incisional discomfort. Objective: Vital Signs Temp Pulse Resp BP Pulse Ox 37.9 C 78 21 H 109/45 L 97 02/04/17 06:00 02/04/17 06:00 02/04/17 06:00 02/04/17 06:00 02/04/17 06:00 Laboratory Results 02/04/17 04:00 02/04/17 04:00 02/03/17 02/04/17 02/05/17 05:59 05:59 05:59 Intake Total 3402.8 Output Total 2445 Balance 957.8 Extubated yest pm without incident. Transfused 2u PRBC & albumin and started on levo 4 mcg for BP support. Levo down to 2 mcg overnoc. UOP adequate. Renal fx stable. CTOP a bit elevated early on, now thinning. CXR-> no PTX, min pulm vasc congestion, no undrained pl eff. Physical Exam - Physical Exam General Appearance: alert, no apparent distress Respiratory: lungs clear, other (blakes x 2 y-d to pleurovac, serosang drainage , no tidal, no AL) Cardiac/Chest: regular rate, rhythm, other (Sternum grossly stable. Sternotomy and RLE venotomy CDI. V wire intact.) Abdomen: normal bowel sounds, non-tender, soft Skin: warm/dry Extremities: other (no visible edema) ICD10 Worksheet Patient Problems: Problems Problem Status Onset Acute blood loss anemia Acute S/P CABG x 1 Acute ~02/03/17 S/P aortic valve replacement with bioprosthetic valve Acute ~02/03/17 CAD in [place] artery Chronic History of recurrent UTI (urinary tract infection) Chronic Severe calcific aortic valve stenosis Chronic
[2017-02-04] MEDS: PANTOPRAZOLE SODIUM 40 MG TAB PO SCH (08:25)
[2017-02-04] MEDS: SENNOSIDES/DOCUSATE SODIUM TAB PO SCH ×2 (08:26→21:30)
[2017-02-04] MEDS: MUPIROCIN 2% 22 GM OINT NS SCH ×2 (08:26→21:30)
[2017-02-04] MEDS ORDERED: ALBUMIN 5% 250 ML IV ONE (10:06)
[2017-02-04 10:28] LABS: POTASSIUM 4.6 mEq/L (3.5-5.2)
[2017-02-04] MEDS ORDERED: traMADol 50 MG TAB PO PRN (15:24)
[2017-02-04 15:46] LABS: POTASSIUM 4.4 mEq/L (3.5-5.2)
[2017-02-04 16:07] LABS: % IMMATURE GRANULYOCYTES 0.5 % (0.0-1.1); ABSOLUTE IMMATURE GRANULOCYTES 0.07 10^3/uL (0.00-0.10); ADD DIFF? NO; ADD MORPH? NO; ADD SCAN? NO; ATYPICAL LYMPHOCYTE FLAG 0 (0-99); FRAGMENT RBC FLAG 0 (0-99); HEMATOCRIT 27.4 % (38.0-47.0); HEMOGLOBIN 9.4 g/dL (12.6-16.3); LEFT SHIFT FLG 10 (0-99); LIPEMIA HEMOLYSIS FLAG 90 (0-99); MEAN CELL HEMOGLOBIN 32.1 pg (27.9-34.1); MEAN CELL HEMOGLOBIN CONCENTR. 34.3 g/dL (32.4-36.7); MEAN CELL VOLUME 93.5 fL (81.5-99.8); MEAN PLATELET VOLUME 11.4 fL (8.7-11.7); PLATELET CLUMPS FLAG 0 (0-99); PLATELET COUNT 89 10^3/uL (150-400); RED BLOOD CELL COUNT 2.93 10^6/uL (4.18-5.33); RED CELL DISTRIBUTION WIDTH 14.1 % (11.5-15.2)
[2017-02-04] MEDS: ALPRAZolam 0.25 MG TAB PO PRN (16:31)
[2017-02-04 18:50] LABS: ANION GAP 9 mEq/L (8-16); CALCIUM 8.5 mg/dL (8.5-10.4); CARBON DIOXIDE 24 mEq/l (22-31); CHLORIDE 106 mEq/L (97-110); CREATININE 0.5 mg/dL (0.6-1.0); GLOMERULAR FILTRATION RATE > 60; GLUCOSE 137 mg/dL (70-100); POTASSIUM 4.3 mEq/L (3.5-5.2); SODIUM 139 mEq/L (134-144)
[2017-02-04] MEDS: ASPIRIN EC 81 MG TAB PO SCH (21:30)
[2017-02-05] MEDS: HEPARIN 5,000 UNIT/0.5 ML SYR SC SCH ×4 (00:41→20:52)
[2017-02-05 04:49] LABS: HEMATOCRIT 28.1 % (38.0-47.0); HEMOGLOBIN 9.5 g/dL (12.6-16.3); MEAN CELL HEMOGLOBIN 32.3 pg (27.9-34.1); MEAN CELL HEMOGLOBIN CONCENTR. 33.8 g/dL (32.4-36.7); MEAN CELL VOLUME 95.6 fL (81.5-99.8); RED BLOOD CELL COUNT 2.94 10^6/uL (4.18-5.33); RED CELL DISTRIBUTION WIDTH 14.1 % (11.5-15.2)
[2017-02-05] MEDS: ALPRAZolam 0.25 MG TAB PO PRN ×2 (04:55→20:57)
[2017-02-05 05:16] LABS: POTASSIUM 4.9 mEq/L (3.5-5.2)
[2017-02-05] MEDS: ceFAZolin 2 GM/DEXTROSE 100 ML IV SCH (06:09)
--- NOTE | 2017-02-05 07:54 | SOAPPROG ---
SOAP Progress Note Assessment/Plan: POD#2 AVR #23 Simpson Magna bovine pericardial bioprosthesis, CABGx1 (SV-RCA), prophylactic AtriClip ligation TAISHA, EVH rt thigh. Sx severe - s/p tissue AVR. Antithrombotic prophylaxis with ASA if rhythm remains stable. 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 Secondary prevention with ASA, BB as allowed by BP, and statin when eating well. Chronic dCHF - Postop hemodynamics supported with colloid and low dose levo. Diuretic and BB when appropriate. Acute expected blood loss anemia - Stable s/p 2u PRBC. No evidence active bleeding. Follow. Hx PAF - Holding SR thus far. BB as allowed by BP. High threshold for anticoagulation as TAISHA ligated and mechanical fall risk (walks with a cane). Mild-moderate MR - Not severe enough to warrant intervention. Possibly ischemic in which case may improve with revasc. Surveillance per cards. Subjective: Feels well. Denies pain/SOB. Objective: Vital Signs Temp Pulse Resp BP Pulse Ox 36.7 C 84 20 122/57 H 97 02/05/17 04:00 02/05/17 04:00 02/05/17 04:00 02/05/17 04:00 02/05/17 04:00 Laboratory Results 02/05/17 04:41 02/05/17 04:41 02/04/17 02/05/17 02/06/17 05:59 05:59 05:59 Intake Total 3402.8 956 Output Total 2445 990 Balance 957.8 -34 Physical Exam - Physical Exam General Appearance: WD/WN, alert, no apparent distress EENT: normal ENT inspection Neck: normal inspection Respiratory: No respiratory distress Cardiac/Chest: regular rate, rhythm Abdomen: non-tender, soft, No distended Skin: normal color, warm/dry Neuro/Psych: no motor/sensory deficits, alert, normal mood/affect, oriented x 3 ICD10 Worksheet Patient Problems: Problems Problem Status Onset Acute blood loss anemia Acute S/P CABG x 1 Acute ~02/03/17 S/P aortic valve replacement with bioprosthetic valve Acute ~02/03/17 CAD in [place] artery Chronic History of recurrent UTI (urinary tract infection) Chronic Severe calcific aortic valve stenosis Chronic
[2017-02-05] MEDS: PANTOPRAZOLE SODIUM 40 MG TAB PO SCH (08:10)
[2017-02-05] MEDS: MULTIVITAMINS 1 EACH TAB PO SCH (08:10)
[2017-02-05] MEDS: SENNOSIDES/DOCUSATE SODIUM TAB PO SCH ×2 (08:10→20:49)
[2017-02-05] MEDS: MUPIROCIN 2% 22 GM OINT NS SCH (08:11)
[2017-02-05] MEDS ORDERED: ASPIRIN 81 MG CHEWABLE TAB TUBE PRN (09:00)
[2017-02-05] MEDS ORDERED: ASPIRIN 81 MG CHEWABLE TAB PO SCH (09:00)
[2017-02-05] MEDS: METOPROLOL TARTRATE 25 MG TAB PO SCH ×2 (09:04→20:50)
[2017-02-05] MEDS ORDERED: FUROSEMIDE 20 MG/2 ML VIAL IVP ONE (17:51)
[2017-02-05] MEDS: ASPIRIN EC 81 MG TAB PO SCH (20:51)
[2017-02-06 06:28] LABS: HEMATOCRIT 28.6 % (38.0-47.0); HEMOGLOBIN 9.4 g/dL (12.6-16.3); MEAN CELL HEMOGLOBIN 31.6 pg (27.9-34.1); MEAN CELL HEMOGLOBIN CONCENTR. 32.9 g/dL (32.4-36.7); MEAN CELL VOLUME 96.3 fL (81.5-99.8); RED BLOOD CELL COUNT 2.97 10^6/uL (4.18-5.33); RED CELL DISTRIBUTION WIDTH 13.7 % (11.5-15.2)
[2017-02-06 06:47] LABS: ANION GAP 6 mEq/L (8-16); CALCIUM 8.9 mg/dL (8.5-10.4); CARBON DIOXIDE 28 mEq/l (22-31); CHLORIDE 103 mEq/L (97-110); CREATININE 0.4 mg/dL (0.6-1.0); GLOMERULAR FILTRATION RATE > 60; GLUCOSE 116 mg/dL (70-100); POTASSIUM 4.1 mEq/L (3.5-5.2); SODIUM 137 mEq/L (134-144)
[2017-02-06] MEDS: HEPARIN 5,000 UNIT/0.5 ML SYR SC SCH ×3 (06:50→21:08)
--- NOTE | 2017-02-06 08:03 | SOAPPROG ---
SOAP Progress Note Assessment/Plan: Assessment: POD#3 AVR #23 Simpson Magna bovine pericardial bioprosthesis, CABGx1 (SV-RCA), prophylactic AtriClip ligation TAISHA, EVH rt thigh. Sx severe - s/p tissue AVR. Antithrombotic prophylaxis as per rhythm. 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 Secondary prevention with baby ASA, statin, and BB as allowed by BP. Chronic dCHF - Postop hemodynamics supported with colloid and transient low dose levo. No sig volume overload. Active diuresis initiated. Care with preload. Adjunctive heart failure regimen as appropriate. Acute expected blood loss anemia - Stable s/p 2u PRBC. No evidence active bleeding. Follow. Hx PAF - Recurrent AF w RVR this am. Started on amio per protocol. Adjunctive BB as allowed by BP. Antithrombotic prophylaxis with Coumadin for [id number] score of 5. Duration pending burden of AF, ideally short-term as TAISHA ligated and mechanical fall risk (walks with a cane). Mild-moderate MR - Not severe enough to warrant intervention. Possibly ischemic in which case may improve with revasc. Surveillance per cards. Plan: Amio per protocol. Inc metoprolol to 25 mg BID. Con gentle diuresis. Start Coumadin. 2.5 mg today. Remove TCPW and chest tubes. Baseline postop echo Mon. Cont inc activity as tolerated. 02/06/17 08:01 Subjective: Disheartened by rhythm and interruption to her recovery. No CP, SOB, nausea or dizziness, Objective: Vital Signs Temp Pulse Resp BP Pulse Ox 36.3 C 83 14 145/79 H 93 02/06/17 04:35 02/06/17 04:35 02/06/17 04:35 02/06/17 04:35 02/06/17 04:35 Laboratory Results 02/06/17 06:15 02/06/17 06:15 02/05/17 02/06/17 02/07/17 05:59 05:59 05:59 Intake Total 956 725 Output Total 990 1965 Balance -34 -1240 SVT 160s with SBP 80s this am. BP supported with IVF and rhythm unmasked as AF w adenosine. Amio started. Mediastinal drains at removal criteria. CXR-> small bilat pleural eff, mild pulm vasc congestion Balanced I/Os. +4 kg overall. Labs ok. Physical Exam - Physical Exam General Appearance: alert, no apparent distress Respiratory: decreased breath sounds (bases), other (Blakes x 2 to bulb suction , serosang drainage) Cardiac/Chest: tachycardia, other (Sternum grossly stable. Sternotomy and LLE venotomy CDI. Vwire intact) Abdomen: non-tender, soft Skin: warm/dry Extremities: swelling (1+ dependent) ICD10 Worksheet Patient Problems: Problems Problem Status Onset Acute blood loss anemia Acute S/P CABG x 1 Acute ~02/03/17 S/P aortic valve replacement with bioprosthetic valve Acute ~02/03/17 CAD in [place] artery Chronic History of recurrent UTI (urinary tract infection) Chronic Severe calcific aortic valve stenosis Chronic
[2017-02-06] MEDS ORDERED: ADENOSINE 6 MG/2 ML VIAL ONE (08:31)
[2017-02-06] MEDS ORDERED: NS 1,000 ML IV ONE (08:31)
[2017-02-06] MEDS ORDERED: ADENOSINE 6 MG/2 ML VIAL IVP ONE ×2 (08:32→08:35)
[2017-02-06] MEDS: ALPRAZolam 0.25 MG TAB PO PRN ×2 (08:39→20:20)
[2017-02-06] MEDS ORDERED: AMIODARONE HCL 100 ML IV ONE (08:45)
[2017-02-06] MEDS ORDERED: AMIODARONE HCL 200 ML IV ONE (08:45)
[2017-02-06] MEDS ORDERED: AMIODARONE HCL 540 MG in D5W 300 ML IV ONE (08:45)
[2017-02-06] MEDS ORDERED: AMIODARONE HCL 150 MG/100 ML BAG (1.5 MG/ML) IV ONE (08:45)
[2017-02-06] MEDS ORDERED: AMIODARONE HCL 100 ML IV PRN (09:00)
[2017-02-06] MEDS ORDERED: FUROSEMIDE 40 MG TAB PO SCH (09:00)
[2017-02-06] MEDS ORDERED: POTASSIUM CL 10 MEQ TAB PO SCH (09:00)
[2017-02-06] MEDS: SENNOSIDES/DOCUSATE SODIUM TAB PO SCH ×2 (10:16→20:20)
[2017-02-06] MEDS: MULTIVITAMINS 1 EACH TAB PO SCH ×2 (10:16→10:18)
[2017-02-06] MEDS: METOPROLOL TARTRATE 25 MG TAB PO SCH ×2 (10:17→20:19)
[2017-02-06] MEDS ORDERED: METOPROLOL TARTRATE 5 MG/5 ML INJ IVP PRN ×2 (10:23→12:43)
[2017-02-06] MEDS: PANTOPRAZOLE SODIUM 40 MG TAB PO SCH (10:43)
[2017-02-06] MEDS ORDERED: WARFARIN SODIUM 2.5 MG TAB PO ONE (16:00)
[2017-02-06] MEDS: ASPIRIN EC 81 MG TAB PO SCH (20:20)
[2017-02-07] MEDS: HEPARIN 5,000 UNIT/0.5 ML SYR SC SCH ×3 (06:14→20:53)
[2017-02-07 06:39] LABS: INR 1.35 (0.83-1.16); PROTIME(PATIENT) 16.7 SEC (12.0-15.0)
[2017-02-07 06:53] LABS: POTASSIUM 4.1 mEq/L (3.5-5.2)
--- NOTE | 2017-02-07 08:20 | SOAPPROG ---
SOAP Progress Note Assessment/Plan: Assessment: POD#4 AVR #23 Simpson Magna bovine pericardial bioprosthesis, CABGx1 (SV-RCA), prophylactic AtriClip ligation TAISHA, EVH rt thigh. Sx severe - s/p tissue AVR. Tubes and wires out. Antithrombotic prophylaxis as per rhythm. 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 Secondary prevention with baby ASA, statin, and BB uptitrated as tolerated. Chronic dCHF - Postop hemodynamics supported with colloid and transient low dose levo. No sig volume overload. Active diuresis initiated. Care with preload. Adjunctive heart failure regimen as appropriate. Acute expected blood loss anemia - Stable s/p 2u PRBC. No evidence active bleeding. Follow. Hx PAF - Episode of AF w RVR yest ultimately responsive to amio and uptitrated BB. Antithrombotic prophylaxis with Coumadin for [id number] score of 5. Duration pending burden of AF, ideally short-term as TAISHA ligated and mechanical fall risk (walks with a cane). Mild-moderate MR - Not severe enough to warrant intervention. Possibly ischemic in which case may improve with revasc. Surveillance per cards. Plan: Transition IV Amio to oral 200 mg daily. Cont metoprolol 25 mg BID. Cont gentle diuresis. Cont Coumadin 2.5 mg daily. Cont SQ hep until INR > 1.6. Consider low dose losartan tonight. Baseline postop echo Mon. Cont inc activity as tolerated. Wean O2. Dispo - Anticipate SNF ([facility]) on 02/07/17 08:16 Subjective: Feels well. Improving strength and stamina. +BM. Coughed up a bunch of phlegm and breathing easier. Full length of kurtz walked. Reservations about taking coumadin ("i used to feed it to the rats") and hopeful duration will be short. Objective: Vital Signs Temp Pulse Resp BP Pulse Ox 36.8 C 76 18 150/82 H 96 02/07/17 07:19 02/07/17 07:19 02/07/17 07:19 02/07/17 07:19 02/07/17 07:19 Laboratory Results 02/06/17 06:15 02/07/17 06:15 02/06/17 02/07/17 02/08/17 05:59 05:59 05:59 Intake Total 725 290 Output Total 1965 725 100 Balance -1240 -435 -100 PT 16.7 SEC (12.0-15.0) H 02/07/17 06:15 INR 1.35 (0.83-1.16) H 02/07/17 06:15 Holding SR since noon yest. Gradual upward creep in SBP. Almost off O2. Neg fluid balance, approaching preop wt. Appropriate response to coumadin. - Pending Discharge Pending Discharge Within 48 Hours: Yes Pending Discharge Date: 02/09/17 Pending Discharge Time: 11:00 Physical Exam - Physical Exam General Appearance: alert, no apparent distress Respiratory: lungs clear (grossly ) Cardiac/Chest: regular rate, rhythm, other (Sternum grossly stable. Sternotomy and RLE venotomy CDI.) Abdomen: non-tender, soft Skin: warm/dry Extremities: swelling ( 1+ dependent) ICD10 Worksheet Patient Problems: Problems Problem Status Onset Acute blood loss anemia Acute S/P CABG x 1 Acute ~02/03/17 S/P aortic valve replacement with bioprosthetic valve Acute ~02/03/17 CAD in [place] artery Chronic History of recurrent UTI (urinary tract infection) Chronic Severe calcific aortic valve stenosis Chronic
[2017-02-07] MEDS: FUROSEMIDE 40 MG TAB PO SCH (09:39)
[2017-02-07] MEDS: METOPROLOL TARTRATE 25 MG TAB PO SCH ×2 (09:40→20:52)
[2017-02-07] MEDS: AMIODARONE HCL 200 MG TAB PO SCH (09:40)
[2017-02-07] MEDS: POTASSIUM CL 20 MEQ TAB PO SCH (09:40)
[2017-02-07] MEDS: PANTOPRAZOLE SODIUM 40 MG TAB PO SCH (09:40)
[2017-02-07] MEDS: SENNOSIDES/DOCUSATE SODIUM TAB PO SCH ×3 (09:41→20:52)
[2017-02-07] MEDS: ALPRAZolam 0.25 MG TAB PO PRN ×2 (10:10→21:03)
[2017-02-07] MEDS ORDERED: WARFARIN SODIUM 2.5 MG TAB PO ONE (16:00)
[2017-02-07] MEDS: ASPIRIN EC 81 MG TAB PO SCH (20:52)
[2017-02-07] MEDS: LOSARTAN POTASSIUM 25 MG TAB PO SCH (21:11)
[2017-02-08 04:47] LABS: HEMATOCRIT 28.7 % (38.0-47.0); HEMOGLOBIN 9.4 g/dL (12.6-16.3); MEAN CELL HEMOGLOBIN 32.1 pg (27.9-34.1); MEAN CELL HEMOGLOBIN CONCENTR. 32.8 g/dL (32.4-36.7); RED BLOOD CELL COUNT 2.93 10^6/uL (4.18-5.33); RED CELL DISTRIBUTION WIDTH 13.4 % (11.5-15.2)
[2017-02-08 04:59] LABS: INR 1.43 (0.83-1.16); PROTIME(PATIENT) 17.4 SEC (12.0-15.0)
[2017-02-08 05:09] LABS: ANION GAP 7 mEq/L (8-16); CALCIUM 8.5 mg/dL (8.5-10.4); CARBON DIOXIDE 30 mEq/l (22-31); CHLORIDE 100 mEq/L (97-110); CREATININE 0.4 mg/dL (0.6-1.0); GLOMERULAR FILTRATION RATE > 60; GLUCOSE 109 mg/dL (70-100); POTASSIUM 3.9 mEq/L (3.5-5.2); SODIUM 137 mEq/L (134-144)
[2017-02-08] MEDS: HEPARIN 5,000 UNIT/0.5 ML SYR SC SCH (05:38)
[2017-02-08] MEDS: METOPROLOL TARTRATE 50 MG TAB PO SCH ×2 (08:14→20:02)
[2017-02-08] MEDS: MULTIVITAMINS 1 EACH TAB PO SCH (08:15)
[2017-02-08] MEDS: POTASSIUM CL 20 MEQ TAB PO SCH (08:15)
[2017-02-08] MEDS: PANTOPRAZOLE SODIUM 40 MG TAB PO SCH (08:15)
[2017-02-08] MEDS: LOSARTAN POTASSIUM 25 MG TAB PO SCH (08:15)
[2017-02-08] MEDS: FUROSEMIDE 40 MG TAB PO SCH (08:15)
[2017-02-08] MEDS: SENNOSIDES/DOCUSATE SODIUM TAB PO SCH ×2 (08:15→20:04)
[2017-02-08] MEDS: AMIODARONE HCL 200 MG TAB PO SCH (08:15)
[2017-02-08] MEDS: ALPRAZolam 0.25 MG TAB PO PRN ×2 (08:20→21:28)
--- NOTE | 2017-02-08 08:32 | SOAPPROG ---
SOAP Progress Note Assessment/Plan: Assessment: POD#5 AVR #23 Simpson Magna bovine pericardial bioprosthesis, CABGx1 (SV-RCA), prophylactic AtriClip ligation TAISHA, EVH rt thigh. Sx severe - s/p tissue AVR. Tubes and wires out. Antithrombotic prophylaxis as per rhythm. 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 Secondary prevention with baby ASA, statin, and BB uptitrated as tolerated. Chronic dCHF - Postop hemodynamics supported with colloid and transient low dose levo. No sig volume overload. Active diuresis initiated. Moderate residual left pleural effusion. Adjunctive heart failure regimen as appropriate. Acute expected blood loss anemia - Stable s/p 2u PRBC. No evidence active bleeding. Follow. Hx PAF - Episode of AF w RVR POD#3 ultimately responsive to amio and uptitrated BB. Antithrombotic prophylaxis with Coumadin for [id number] score of 5. Duration pending burden of AF, ideally short-term as TAISHA ligated and mechanical fall risk (walks with a cane). Mild-moderate MR - Not severe enough to warrant intervention. Possibly ischemic in which case may improve with revasc. Surveillance per cards. Plan: IR consult for consideration left US guided thoracentesis. Cont amio 200 mg daily thru discharge. Cont gentle diuresis. Cont Losartan 25 mg daily. Inc metoprolol to 50 mg BID. Likely add low dose Cardizem SR tonight if SBP > 140. Inc Coumadin to 3 mg daily. Hold SQ hep for tap. Baseline postop echo today. Cont inc activity as tolerated. Wean O2. Dispo - Anticipate SNF ([facility]) tomorrow. 02/08/17 08:29 Subjective: Feels fine. Pleased with gains in strength and stamina. A bit breathless with activity but ready for discharge tomorrow. Objective: Vital Signs Temp Pulse Resp BP Pulse Ox 36.6 C 92 16 161/73 H 96 02/08/17 08:00 02/08/17 08:14 02/08/17 08:00 02/08/17 08:15 02/08/17 08:00 Laboratory Results 02/08/17 04:35 02/08/17 04:35 02/07/17 02/08/17 02/09/17 05:59 05:59 05:59 Intake Total 290 800 Output Total 725 2050 Balance -435 -1250 PT 17.4 SEC (12.0-15.0) H 02/08/17 04:35 INR 1.43 (0.83-1.16) H 02/08/17 04:35 Holding SR w PACs. Steady upward creep in SBP. CXR-> no pulm vasc congestion, slightly inc left pl effusion into moderate range. Adequate fluid balance. Stable renal fx. Slowly rising INR. - Pending Discharge Pending Discharge Within 24 Hours: Yes Pending Discharge Date: 02/09/17 Pending Discharge Time: 11:00 Physical Exam - Physical Exam General Appearance: alert, no apparent distress Respiratory: decreased breath sounds (left base) Cardiac/Chest: regular rate, rhythm, other (Sternum grossly stable. Sternotomy and RLE venotomy CDI) Abdomen: non-tender, soft Skin: warm/dry Extremities: swelling (trace) ICD10 Worksheet Patient Problems: Problems Problem Status Onset Acute blood loss anemia Acute S/P CABG x 1 Acute ~02/03/17 S/P aortic valve replacement with bioprosthetic valve Acute ~02/03/17 CAD in [place] artery Chronic History of recurrent UTI (urinary tract infection) Chronic Severe calcific aortic valve stenosis Chronic
[2017-02-08] MEDS ORDERED: NA BICARBONATE 50 MEQ/50 ML VIAL ONE (11:38)
[2017-02-08] MEDS ORDERED: LIDOCAINE 1% 30 ML SDV ONE (11:39)
--- NOTE | 2017-02-08 12:52 | ECHO ---
[id number] + + [address] : : [place] [address] : : [phone] + + Adult Echocardiographic Report + ---+ :Name: MILENA QUEEN JStudy Date: 02/08/2017 10:53 AM : : Hospital Admission Number: [id number] Location: 210: :: 1930 Gender: Female Height: 66 in : :Age: 86 yrs Race: WH Weight: 152 lb : :Reason For Study: S/P AVR #23 CE magna bovine pericardial : :valve BSA: 1.8 meters2 : + ---+ MMode/2D Measurements \T\ Calculations IVSd: 1.2 cm LVIDd: 4.5 cm FS: 30.0 % Ao root diam: LVPWd: 1.4 cm LVIDs: 3.2 cm EDV(Teich): 2.7 cm 94.1 ml LA dimension: ESV(Teich): 4.3 cm 40.2 ml EF(Teich): 57.3 % LVLd ap4: 6.7 cm SV(MOD-sp4): EDV(MOD-sp4): 44.0 ml 62.0 ml LVLs ap4: 5.7 cm ESV(MOD-sp4): 18.0 ml EF(MOD-sp4): 71.0 % Normal Measurement Values: + + :LVIDd (3.5-5.7cm) IVSd (0.6-1.1cm) LVPWd (0.6-1.1cm) Aortic Root (2.0-3.7cm)Left Atrium (1.5-4.0cm): :LV Vol(d) (76-115ml) LV Vol(s) (29-48ml) Ejec Fraction (50-65%)PV Driss (0.6- 1.2m/s) TV Driss (0.4-1.0m/s) : :MV E Driss (0.8-1.0m/s)MV A Driss (0.3-1.0m/s)LVOT Driss (0.7-1.2m/s) Asc Ao Driss ( 0.9-1.8m/s) : + + Doppler Measurements \T\ Calculations MV E max driss: 106.6 cm/sec Ao mean P.1 mmHg TR max driss: 272.8 cm/sec MV A max driss: 70.1 cm/sec Ao V2 mean: 157.6 cm/secTR max P.8 mmHg MV E/A: 1.5 Ao V2 VTI: 40.8 cm RAP systole: 5.0 mmHg RVSP(TR): 34.8 mmHg Left Ventricle The left ventricle is normal in size. There is mild concentric left ventricular hypertrophy. The left ventricle is hyperdynamic. Ejection Fraction = 70-75%. There is Doppler evidence for diastolic dysfunction. No regional wall motion abnormalities noted. Right Ventricle The right ventricle is normal in size and function. Atria The left atrium is severely dilated. The right atrium is mildly dilated. The interatrial septum is intact with no evidence for an atrial septal defect. Mitral Valve Calcified mitral apparatus. There is no evidence of mitral valve prolapse. There is no mitral valve stenosis. There is mild to moderate mitral regurgitation. Tricuspid Valve Normal tricuspid valve. Right ventricular systolic pressure is normal. There is mild tricuspid regurgitation. Aortic Valve There is a bioprosthetic aortic valve. AV max PG is 19mmHG. AV mean PG is 11mmHG. Pulmonic Valve The pulmonic valve is normal in structure and function. There is no pulmonic valvular regurgitation. Great Vessels The aortic root is normal size. Pericardium/Pleural There is no pericardial effusion. Conclusion A complete two-dimensional transthoracic echocardiogram was performed (2D, M-mode, Doppler and color flow Doppler). This was essentially a normal study. The study was technically adequate. This degree of valvular regurgitation is within normal limits. There is mild concentric left ventricular hypertrophy. The left ventricle is hyperdynamic. Ejection Fraction = 70-75%. There is Doppler evidence for diastolic dysfunction. The left atrium is severely dilated. The right atrium is mildly dilated. Calcified mitral apparatus. There is mild to moderate mitral regurgitation. There is mild tricuspid regurgitation. Right ventricular systolic pressure is normal. There is a bioprosthetic aortic valve. AV max PG is 19mmHG. AV mean PG is 11mmHG. There is no pericardial effusion. Final Reading Physician: Dr Charisse Tran electronically signed on 02/08/2017 12:50 PM Ordering Physician: Melinda West Performed By: Madelaine De Santiago, CS
[2017-02-08] MEDS ORDERED: WARFARIN SODIUM 3 MG TAB PO ONE (16:00)
[2017-02-08] MEDS: ASPIRIN EC 81 MG TAB PO SCH (20:03)
[2017-02-09 05:46] LABS: POTASSIUM 3.7 mEq/L (3.5-5.2)
[2017-02-09 05:57] LABS: INR 1.45 (0.83-1.16); PROTIME(PATIENT) 17.6 SEC (12.0-15.0)
[2017-02-09] MEDS ORDERED: POTASSIUM CL 20 MEQ TAB PO ONE (07:16)
--- NOTE | 2017-02-09 07:54 | SOAPPROG ---
SOAP Progress Note Assessment/Plan: POD#6 AVR #23 Simpson Magna bovine pericardial bioprosthesis, CABGx1 (SV-RCA), prophylactic AtriClip ligation TAISHA, EVH rt thigh. POD #1 Left thoracentesis (550 cc) Sx severe - s/p tissue AVR. Tubes and wires out. Antithrombotic prophylaxis as per rhythm. 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 Secondary prevention with baby ASA, statin, and BB uptitrated as tolerated. Chronic dCHF - + 4 kg since admission. Active diuresis initiated. Continue ARB. Acute expected blood loss anemia - Stable s/p 2u PRBC. No evidence active bleeding. Follow. Post operative PAF - Continue BB/amiodarone. Antithrombotic prophylaxis with Coumadin goal 2-3 for [id number] score of 5 duration pending rhythm stability. Mild-moderate MR - Not severe enough to warrant intervention. Possibly ischemic in which case may improve with revasc. Surveillance per cards. 02/09/17 14:16 Subjective: Denies SOB/CP. Legs feel puffy. Would like another day to recuperate before discharge. Objective: Vital Signs Temp Pulse Resp BP Pulse Ox 36.7 C 87 16 141/72 H 92 02/09/17 04:00 02/09/17 04:00 02/09/17 04:00 02/09/17 04:00 02/09/17 04:00 Laboratory Results 02/08/17 04:35 02/09/17 04:55 02/08/17 02/09/17 02/10/17 05:59 05:59 05:59 Intake Total 800 750 Output Total 2050 850 Balance -1250 -100 PT 17.6 SEC (12.0-15.0) H 02/09/17 04:55 INR 1.45 (0.83-1.16) H 02/09/17 04:55 Physical Exam - Physical Exam General Appearance: WD/WN, alert, no apparent distress EENT: normal ENT inspection Neck: normal inspection Respiratory: No respiratory distress Cardiac/Chest: regular rate, rhythm Abdomen: non-tender, soft, No distended Skin: normal color, warm/dry Extremities: pedal edema Neuro/Psych: no motor/sensory deficits, alert, normal mood/affect, oriented x 3 ICD10 Worksheet Patient Problems: Problems Problem Status Onset Acute blood loss anemia Acute S/P CABG x 1 Acute ~02/03/17 S/P aortic valve replacement with bioprosthetic valve Acute ~02/03/17 CAD in [place] artery Chronic History of recurrent UTI (urinary tract infection) Chronic Severe calcific aortic valve stenosis Chronic
[2017-02-09] MEDS: LOSARTAN POTASSIUM 25 MG TAB PO SCH (08:11)
[2017-02-09] MEDS: SENNOSIDES/DOCUSATE SODIUM TAB PO SCH ×2 (08:11→20:05)
[2017-02-09] MEDS: PANTOPRAZOLE SODIUM 40 MG TAB PO SCH (08:11)
[2017-02-09] MEDS: FUROSEMIDE 40 MG TAB PO SCH ×2 (08:12→15:05)
[2017-02-09] MEDS: ALPRAZolam 0.25 MG TAB PO PRN ×2 (08:14→21:28)
[2017-02-09] MEDS: METOPROLOL TARTRATE 50 MG TAB PO SCH ×2 (08:15→19:46)
[2017-02-09] MEDS: MULTIVITAMINS 1 EACH TAB PO SCH (08:15)
[2017-02-09] MEDS: AMIODARONE HCL 200 MG TAB PO SCH (08:15)
[2017-02-09] MEDS: POTASSIUM CL 20 MEQ TAB PO SCH ×2 (08:19→15:06)
[2017-02-09] MEDS ORDERED: FUROSEMIDE 40 MG/4 ML VIAL IVP ONE (08:43)
[2017-02-09] MEDS ORDERED: WARFARIN SODIUM 3 MG TAB PO ONE (16:00)
[2017-02-09] MEDS ORDERED: WARFARIN SODIUM 2.5 MG TAB PO ONE (16:00)
[2017-02-09] MEDS: ASPIRIN EC 81 MG TAB PO SCH (19:46)
[2017-02-09] MEDS ORDERED: SENNOSIDES/DOCUSATE SODIUM TAB PO PRN (20:39)
[2017-02-10 06:14] LABS: HEMATOCRIT 27.5 % (38.0-47.0); HEMOGLOBIN 9.1 g/dL (12.6-16.3); MEAN CELL HEMOGLOBIN 32.2 pg (27.9-34.1); MEAN CELL HEMOGLOBIN CONCENTR. 33.1 g/dL (32.4-36.7); MEAN CELL VOLUME 97.2 fL (81.5-99.8); RED BLOOD CELL COUNT 2.83 10^6/uL (4.18-5.33); RED CELL DISTRIBUTION WIDTH 13.2 % (11.5-15.2)
[2017-02-10 06:21] LABS: INR 1.49 (0.83-1.16)
[2017-02-10 06:38] LABS: POTASSIUM 3.6 mEq/L (3.5-5.2)
--- NOTE | 2017-02-10 07:55 | SOAPPROG ---
SOAP Progress Note Assessment/Plan: Assessment: POD#7 AVR #23 Simpson Magna bovine pericardial bioprosthesis, CABGx1 (SV-RCA), prophylactic AtriClip ligation TAISHA, EVH rt thigh. POD#2 550 ml left thoracentesis Sx severe - s/p tissue AVR. Tubes and wires out. Antithrombotic prophylaxis as per rhythm. 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 Secondary prevention with baby ASA, statin, and BB uptitrated as tolerated. Chronic dCHF - Postop hemodynamics supported with colloid and transient low dose levo. No sig volume overload. Active diuresis initiated. Moderate residual left pleural effusion evacuated by thoracentesis. Adjunctive heart failure regimen as appropriate. Acute expected blood loss anemia - Stable s/p 2u PRBC. No evidence active bleeding. Follow. Hx PAF - Episode of AF w RVR POD#3 ultimately responsive to amio and uptitrated BB. Antithrombotic prophylaxis with Coumadin for [id number] score of 5. Duration pending burden of AF, ideally short-term as TAISHA ligated and mechanical fall risk (walks with a cane). Mild-moderate MR - Not severe enough to warrant intervention. Possibly ischemic in which case may improve with revasc. Surveillance per cards. Plan: Cont daily diuresis. Cont metoprolol 50 mg BID. Inc Coumadin to 5 mg daily. Dispo - Anticipate SNF ([facility] later today. 02/10/17 07:53 Subjective: Less puffy. Improving stamina. +BM. Comfortable going to SNF. Objective: Vital Signs Temp Pulse Resp BP Pulse Ox 37.1 C 93 19 128/74 H 96 02/10/17 07:39 02/10/17 07:39 02/10/17 07:39 02/10/17 07:39 02/10/17 07:39 Laboratory Results 02/10/17 06:00 02/10/17 06:00 02/09/17 02/10/17 02/11/17 05:59 05:59 05:59 Intake Total 750 800 Output Total 850 2400 Balance -100 -1600 PT 18.0 SEC (12.0-15.0) H 02/10/17 06:00 INR 1.49 (0.83-1.16) H 02/10/17 06:00 Holding SR. Adequate BP. Excellent diuresis. Approaching baseline wt. Almost off O2. Labs ok. INR slow to rise. Physical Exam - Physical Exam General Appearance: alert, no apparent distress Respiratory: crackles (scattered bases) Cardiac/Chest: regular rate, rhythm, other (Sternum grossly stable. Sternotomy and RLE venotomy CDI) Abdomen: non-tender, soft Skin: warm/dry Extremities: swelling (1+ dependent) ICD10 Worksheet Patient Problems: Problems Problem Status Onset Acute blood loss anemia Acute S/P CABG x 1 Acute ~02/03/17 S/P aortic valve replacement with bioprosthetic valve Acute ~02/03/17 CAD in [place] artery Chronic History of recurrent UTI (urinary tract infection) Chronic Severe calcific aortic valve stenosis Chronic
[2017-02-10] MEDS ORDERED: POTASSIUM CL 20 MEQ TAB PO ONE (08:00)
[2017-02-10] MEDS: AMIODARONE HCL 200 MG TAB PO SCH (08:30)
[2017-02-10] MEDS: POTASSIUM CL 20 MEQ TAB PO SCH (08:30)
[2017-02-10] MEDS: METOPROLOL TARTRATE 50 MG TAB PO SCH (08:30)
[2017-02-10] MEDS: FUROSEMIDE 40 MG TAB PO SCH (08:31)
[2017-02-10] MEDS: MULTIVITAMINS 1 EACH TAB PO SCH (08:31)
[2017-02-10 09:04] VITALS: O2SAT 97
[2017-02-10] MEDS: ALPRAZolam 0.25 MG TAB PO PRN (10:40)
[2017-02-10 11:50] VITALS: BP 106/57; PULSE 83; RESP 20; TEMP 98.3
--- NOTE | 2017-02-10 13:17 | PDIAF ---
- Diagnosis Diagnosis: severe , CAD, dCHF, PAF s/p tissue AVR, CABG1 Code Status: Full Code - Medication Management Discharge Medications: Medications to Continue on Transfer ALPRAZolam [Xanax 0.5 MG (*)] 0.25 mg PO BID PRN 02/03/17 [Last Taken Unknown] Beta-Carotene(A) W-C & E/Min [Ocuvite] 1 tab PO DAILY 02/03/17 [Last Taken 02/02] Multivitamins [Multivitamin (*)] 1 each PO DAILY 02/03/17 [Last Taken 02/02/17] Acetaminophen [Tylenol 325mg (*)] 325 - 650 mg PO Q4HRS PRN #0 tab 02/10/17 [ Last Taken Unknown] Aspirin EC [Aspirin EC 81 mg (*)] 81 mg PO HS #0 02/10/17 [Last Taken 02/02/17] Furosemide [Lasix 40 MG (*)] 40 mg PO DAILY #0 tab 02/10/17 [Last Taken Unknown] Metoprolol Tartrate [Lopressor 50 mg (*)] 50 mg PO BID #0 tab 02/10/17 [Last Taken Unknown] Polyethylene Glycol 3350 [Miralax 17 gm (*)] 17 gm PO DAILY PRN #0 pkt 02/10/17 [Last Taken Unknown] Potassium Cl [Klor-Con 20 meq (*)] 20 meq PO DAILY #0 tab 02/10/17 [Last Taken Unknown] Sennosides/Docusate Sodium [Senokot-S] 1 - 2 tab PO BID PRN #0 tab 02/10/17 [ Last Taken Unknown] Warfarin Sodium [Coumadin 5MG (*)] 5 mg PO DAILY16 #90 tab 02/10/17 [Last Taken Unknown] traMADol [Ultram 50 mg (*)] 50 - 100 mg PO Q4HRS PRN #0 tab 02/10/17 [Last Taken Unknown] Discharge Medications: Refer to the Discharge Home Medication list for PRN reason. PICC Care - Routine: N/A - Orders Services needed: Registered Nurse (cardiorespiratory monitoring, therapeutic drug level monitoring), Physical Therapy (cardiac rehab, sternal precautions x 3 more weeks) Oxygen: 1 Lpm NC continuously, prn SpO2 < 90% Diet Recommendation: cardiac -low fat low salt, fluid restriction (use comment for amount) (1800 ml (60 ounces) daily until back to baseline weight and no swelling) Diet Texture: Regular Texture Diet Weigh Patient: daily Gomez: Not applicable Wound Care Instructions: daily soap and water. Ok to leave all wounds open to air. avoid ointments until scabs off. avoid underwater immersion until scabs off. Activity/Weight Bearing Restrictions: Sternal precautions x 3 more weeks. Avoid lifting > 10 lbs with an outstretched arm. Avoid push/pull activities. Additional: Call [facility] for resting HR < 60 or > 120, SBP < 90 or > 150, suppl O2 need > 2Lpm, overnight wt gain > 2 lbs or progressive leg swelling, or any wound concerns. - Labs/Radiology BMP Date: 02/15/17 CBC Date: 02/15/17 PT/INR Date: 02/12/17 Imaging Orders: prior to surgical appt; please budget 30 min to stop by main ER for film Call or Fax Lab and Imaging Results to: Dr Monahan's office, attn [facility] - Follow Up Care Current Providers and Referrals: Racquel Chan MD [Primary Care Provider] - Dhruv Monahan DO [Doctor of Osteopathy] - 02/16/17 1:30 pm Carlos Giraldo MD [Medical Doctor] - (followup within 2 weeks of release from SNF)
--- NOTE | 2017-02-10 17:18 | PDDCSUM ---
Discharge Summary Discharge Summary: DATE OF ADMISSION: 02/03/17 DATE OF DISCHARGE: 02/10/17 DISPOSITION: [facility] PRINCIPAL DISCHARGE DIAGNOSES: 1. Severe aortic valve stenosis, treated with bioprosthetic aortic valve replacement. 2. Obstructive single vessel coronary artery disease, treated with coronary artery bypass grafting x 1. 3. Status post prophylactic AtriClip ligation of the left atrial appendage. 4. Acute expected blood loss anemia. 5. Postoperative paroxysmal atrial fibrillation. 6. Postoperative left pleural effusion evacuated by thoracentesis. DISCHARGE MEDICATIONS: See MAR for complete list. As on admission with the following adjustments: Hold herbal supplement. Hold Atenolol 25 mg hs. Hold ASA 81 mg daily for INR > 3 NEW prescriptions: 1. Coumadin 5 mg daily or as directed by INR. 2. Metoprolol 50 mg BID. 3. Lasix 40 mg daily until back to baseline weight of 140 lbs and no swelling. 4. KlorCon 20 mEQ daily with lasix. 5. Ultram 50 mg q 4-6 hrs prn incisional pain not controlled with Tylenol. 6. Oxygen @ 1LPM continuously or as directed by SpO2. FOLLOW UP APPOINTMENTS: 1. CV surgery: with Dr Monahan at [facility] on 02/16 at 1:30 pm. 2. Cardiology: with Dr Giraldo at [facility] within 4-6 weeks. Appointment to be established during surgical visit. FOLLOW UP TESTING: CBC and BMP on 02/15. Results to [facility]. CXR prior to surgical appointment. HISTORY OF PRESENT ILLNESS: 86 yo female with progressive into critical range and recent admission for decompensated dCHF evaluated for TAVR vs SAVR. No prohibitive surgical risk, and as preop imaging notable for single vessel obstructive CAD, admitted for elective AVR/CABG. PERTINENT PAST MEDICAL HISTORY: PAF, chronic dCHF, HTN, recurrent UTI, polymyalgia rheumatica, severe OA knees. ALLERGIES/SENSITIVITIES: sulfa CONSULTANTS: None PROCEDURES/IMAGIN/3 (Taniya): Aortic valve replacement with a 23 mm Simpson Magna bovine pericardial bioprosthesis. Coronary artery bypass grafting x 1 (SV-RCA). Endoscopic vein harvest right thigh. Prophylactic AtriClip ligation of the left atrial appendage. 02/08 (Chelsea): Transthoracic echocardiogram. 02/08 (Opal): Ultrasound guided left thoracentesis. ABBREVIATED HOSPITAL COURSE BY ACTIVE PROBLEM LIST: 1. Sx severe - s/p tissue AVR. Stable early postop course. Improved LV systolic fx by baseline postop echo. Antithrombotic prophylaxis as per rhythm. 2. 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 Secondary prevention with baby ASA , statin, and BB uptitrated as tolerated. 3. Chronic dCHF - Postop hemodynamics supported with colloid and transient low dose levo. No sig volume overload. Active diuresis initiated. Moderate residual left pleural effusion evacuated by thoracentesis. Adjunctive heart failure regimen as appropriate. 4. Acute expected blood loss anemia - Stable s/p 2u PRBC. No evidence active bleeding. H/H > 06/30 maintained. 5. Hx PAF - Episode of AF w RVR POD#3 ultimately responsive to amio and uptitrated BB. Antithrombotic prophylaxis with Coumadin for [id number] score 5. Duration pending burden of AF, ideally short-term as TAISHA ligated and as at risk of falling (walks with a cane). 6. Mild to moderate MR - Not severe enough to warrant intervention. Essentially unchanged by baseline postop echo. Surveillance per cards. DISCHARGE CLINICAL INFORMATION: Sternum grossly stable. Sternotomy CDI, sutured, +Dermabond. HR . SBP . SpO2 . Wt kg above admission at kilos. WBC 7.7, Hgb 9.1, HCT 27.5, Plt 213, Na , K 3.6, Cr 0.4 Coumadin flow sheet: Target INR 2-3. Duration TBD. Date INR mg 5/6 n/d 2.5 02/07 1.35 2.5 02/08 1.43 3 02/09 1.45 3 02/10 1.49 5
== END 2017-02-10 14:49 | DRG 220 ==
LOC: F2N 07:51 → F2W 02-05 09:46
PROVIDERS: ADMIT Thoracic Surgery (Cardiothoracic Vascular Surgery); ATTEND Thoracic Surgery (Cardiothoracic Vascular Surgery)
PROC: 06BP4ZZ Excision of Right Saphenous Vein, Percutaneous Endoscopic Approach (ICD-10-PCS; principal; 2017-02-03 11:45)
PROC: 021009W Bypass Coronary Artery, One Artery from Aorta with Autologous Venous Tissue, Open Approach (ICD-10-PCS; principal; 2017-02-03 11:45)
PROC: B246ZZ4 Ultrasonography of Right and Left Heart, Transesophageal (ICD-10-PCS; principal; 2017-02-03 11:45)
PROC: 02RF08Z Replacement of Aortic Valve with Zooplastic Tissue, Open Approach (ICD-10-PCS; principal; 2017-02-03 11:45)
PROC: 02L70CK Occlusion of Left Atrial Appendage with Extraluminal Device, Open Approach (ICD-10-PCS; principal; 2017-02-03 11:45)
PROC: 5A1221Z Performance of Cardiac Output, Continuous (ICD-10-PCS; principal; 2017-02-03 11:45)
PROC: 30243N1 Transfusion of Nonautologous Red Blood Cells into Central Vein, Percutaneous Approach (ICD-10-PCS; 2017-02-03 11:45)
PROC: 0W9B3ZZ Drainage of Left Pleural Cavity, Percutaneous Approach (ICD-10-PCS; 2017-02-07)
DX: I08.0 Rheumatic disorders of both mitral and aortic valves (principal); I25.10 Atherosclerotic heart disease of native coronary artery without angina pectoris; I50.32 Chronic diastolic (congestive) heart failure; D62 Acute posthemorrhagic anemia; J90 Pleural effusion, not elsewhere classified; I48.0 Paroxysmal atrial fibrillation; I11.0 Hypertensive heart disease with heart failure; F41.9 Anxiety disorder, unspecified
CPT/HCPCS: 82947-QW; 92526-GN; 92610-GN; 97116-GP; 97161-GP; 97166-GO; 97530-GP; 97535-GO; G8978-GP-CL; G8979-GP-CJ; G8987-GO-CK; G8988-GO-CI; G8996-GN-CH; G8996-GN-CI; G8997-GN-CH; G8998-GN-CH; J0153; J0282; J0690; J1265; J1644; J1815; J1885; J2001; J2150; J2250; J2260; J2370; J2405; J2704; J2720; J2765; J2930; J3010; J7060; P9016; P9041

== ENCOUNTER → 2017-02-16 | Outpatient (CLI) | payer OTHER | LOC: FIMAGING 12:47 → EDSTATUS 12:48 | PROVIDERS: ATTEND Thoracic Surgery (Cardiothoracic Vascular Surgery) | DX: Z09 Encounter for follow-up examination after completed treatment for conditions other than malignant neoplasm (principal); I25.10 Atherosclerotic heart disease of native coronary artery without angina pectoris; J90 Pleural effusion, not elsewhere classified; J98.11 Atelectasis ==

== ENCOUNTER → 2017-03-02 | Outpatient (CLI) | payer OTHER | LOC: FIMAGING 10:47 | PROVIDERS: ATTEND Thoracic Surgery (Cardiothoracic Vascular Surgery) | DX: J90 Pleural effusion, not elsewhere classified (principal); Z95.1 Presence of aortocoronary bypass graft; Z95.2 Presence of prosthetic heart valve; Z98.890 Other specified postprocedural states ==

== ENCOUNTER → 2017-05-07 | Outpatient (CLI) | payer OTHER | LOC: BHFA 10:00 | PROVIDERS: ATTEND Internal Medicine Interventional Cardiology | DX: I48.91 Unspecified atrial fibrillation (principal); I50.32 Chronic diastolic (congestive) heart failure; I35.0 Nonrheumatic aortic (valve) stenosis ==

== ENCOUNTER → 2018-04-26 | Outpatient (CLI) | payer OTHER | LOC: FLAB 13:26 | PROVIDERS: ATTEND Internal Medicine Interventional Cardiology | DX: Z51.81 Encounter for therapeutic drug level monitoring (principal); I48.91 Unspecified atrial fibrillation; Z79.899 Other long term (current) drug therapy ==